=== PATIENT | female | born 1985 | race Caucasian/White ===

== ENCOUNTER 2022-07-08 13:27 | Emergency (ER) | payer OTHER ==
--- OUTSIDE RECORDS SUMMARY | 2022-07-08 13:34 | XMS REPORT | Continuity of Care Document ---
:1985 Author Organization [facility] t Address [address] [place] [address] Care Team Providers Name Role Phone [email or web address] Attending Clinician Unavailable Kristopher Caldwell Attending Clinician Unavailable LITO LIND Attending Clinician Unavailable Nikia Marcos Attending Clinician [phone] Hayley Arzate Attending Clinician Unavailable NATALI HERZOG Attending Clinician Unavailable Isidro Chaudhry Attending Clinician [phone] Yolis Nayak Attending Clinician Unavailable Cinda Weinberg Attending Clinician Unavailable FRANCESCO DUTTON Attending Clinician Unavailable Usha Chaudhry Attending Clinician Unavailable Kristopher Caldwell Admitting Clinician Unavailable Isidro Chaudhry Unavailable [phone] Renan Gates Unavailable Unavailable Payers Payer Name Policy Type Policy Number Effective Date Expiration Date S ource Self Pay P [id number] 2022 00:00:00 Problems Condition Condition Condition Status Onset Resolution Last Treating Co mments Source Name Details Category Date Date Treatment Clinician Date RASH RASH Diagnosis Active 2021-12-02 Mem oria Active 12-02 13:59:00 l 12/02/2021 00:00: Lex haddad 00 [facility] ABDOMINAL ABDOMINAL Diagnosis Active 2021-09-28 Memoria PAIN PAIN 18 09:33:00 l Active 00:00: Dao 09/28/2021 00 [facility] Thrombocyt Condition Active 2021-02-16 Chaudhry, Legacy osis 02-16 21:21:15 [facility] Communi 00:00: ty 00 Health Leukocytos Condition Active 2021-02-16 Chaudhry, Legacy is 02-16 21:21:15 Pathik Communi 00:00: ty 00 Health VOMITING VOMITING Diagnosis Active 2021-01-27 Memoria Active 01-27 12:40:00 l 01/27/2021 00:00: Lex haddad 00 [facility] Clinical Condition Active 2021-02-16 [place] health 01-25 21:20:12 Uche Angel educator 00:00: Annalie ty visit 00 Health Prediabete Condition Active 2021-01-25 Chaudhry, Legacy s 01-25 18:17:00 Pathik Communi 00:00: ty 00 Health Chronic Condition Active 2021-01-25 Chaudhry, [place] kidney 01-25 18:17:00 Pathik Communi disease 00:00: ty stage 2 00 Health Elevated Condition Active 2021-01-25 Chaudhry, L egacy alkaline 01-25 18:17:00 Pathik Commun i phosphatas 00:00: ty e 00 Health Abnormal Condition Active 2021-01-25 Chaudhry, L egacy CBC 01-25 18:17:00 Pathik Communi 00:00: ty 00 Health Dyspepsia Condition Active 2021-01-24 Chaudhry, Legacy 01-24 15:29:31 Path[facility] Communi 00:00: ty 00 Health PMDD Condition Active 2021-01-24 Chaudhry, Leg acy 01-24 15:29:31 Pathik Communi 00:00: ty 00 Health Heavy Condition Active 2021-01-24 Chaudhry, Leg acy menstruati 01-24 15:29:31 Pathik Comm uni on 00:00: ty 00 Health Preventive Condition Active 2021-01-24 Chaudhry, [facility] health 01-24 15:29:31 [facility] Communi care 00:00: ty examinatio 00 Health n Exercise Condition Active 2021-01-24 Isidoro, L egacy Counseling 01-24 15:29:31 Pathik Comm uni 00:00: ty 00 Health Dietary Condition Active 2021-01-24 Chaudhry, [place] counseling 01-24 15:29:31 Pathik Comm uni and 00:00: ty surveillan 00 Health ce BMI Condition Active 2021-01-24 Chaudhry, Leg acy 26.0-26.9 01-24 15:29:31 Pathik Commu ni 00:00: ty 00 Health Overweight Condition Active 2021-01-24 Chaudhry, Legacy 01-24 15:29:31 Pathik Communi 00:00: ty 00 Health EYES PAIN EYES PAIN Diagnosis Active 2019-12-01 Memoria Active 11-30 10:35:00 l 12/01/2019 00:00: Lex haddad 00 [facility] EYE EYE Diagnosis Active 2019-11-09 Mem oria IRRITATION IRRITATION 11-08 13:16:00 l Active 00:00: Dao 11/09/2019 00 [facility] VOMITTING VOMITTING Diagnosis Active 2019-02-19 Memoria Active 02-19 12:45:00 l 02/19/2019 00:00: Lex FORBES 00 [facility] COUGH COUGH Diagnosis Active 2017-09-22 Mem oria Active 2 07:29:00 l 09/22/2017 05:00: Lex haddad 00 [facility] Other and Other and Problem 2017-12-29 Memoria unspecifie unspecifie 13:33:03 tahir Dc overexerti overexerti on or on or strenuous strenuous movements movements or or postures, postures, initial initial encounter encounter 12/29/2017 ANDREI [facility] History of Past Illness Condition Condition Condition Status Onset Resolution Last Treating Co mments Source Name Details Category Date Date Treatment Clinician Date Rash and Rash and Problem 2021-12-04 2021-12-04 Memoria other other 4-24 21:46:57 21:46:57 l nonspecifi nonspecifi 18:08: He damaso sullivan skin c skin 00 eruption eruption 12/02/2021 12/04/2021 [facility] Vomiting, Problem 2021-09-30 2021-09-30 Memoria unspecifie Vomiting, -18 22:28:27 22:28:27 l d unspecifie 15:41: Lex n d 00 09/28/2021 09/30/2021 [facility] Nausea Nausea Problem 2021-09-30 2021-09-30 Memoria with with -18 22:28:27 22:28:27 l vomiting, vomiting, 15:41: Ed merrill unspecifie unspecifie 00 d d 09/28/2021 09/30/2021 [facility] Unspecifie Problem 2021-09-30 2021-09-30 Memoria d Unspecifie 18 22:28:27 22:28:27 l abdominal d 15:41: Dao pain abdominal 00 pain 09/28/2021 09/30/2021 [facility] Hypokalemi Hypokalem Problem 2021-01-29 2021-01-29 Memoria a ia 01-27 22:01:26 22:01:26 l 01/27/2021 17:00: Lex n 01/29/2021 00 [facility] Cannabis Cannabis Problem 2021-01-29 2021-01-29 Memoria abuse, abuse, 01-27 22:01:26 22:01:26 l uncomplica uncomplica 17:00: He damaso zoey zoey 00 01/27/2021 01/29/2021 [facility] Liver Liver Problem 2021-01-29 2021-01-29 emoria disease, disease, 01-27 22:01:26 22:01:26 l unspecifie unspecifie 17:00: He rmann d d 00 01/27/2021 01/29/2021 [facility] Dehydratio Dehydrati Problem 2021-01-29 2021-01-29 Memoria n on 01-27 22:01:26 22:01:26 l 01/27/2021 17:00: Lex n 01/29/2021 [facility] Unspecifie Unspecifi Problem 2019-12-03 2019-12-03 Memoria d acute ed acute 11-30 21:28:22 21:28:22 l conjunctiv conjunctiv 17:00: He rmann itis, itis, 00 unspecifie unspecifie d eye d eye 12/01/2019 12/03/2019 [facility] Ocular Ocular Problem 2019-12-03 2019-12-03 Memoria pain, pain, 11-30 21:28:22 21:28:22 l unspecifie unspecifie 17:00: He rmann d eye d eye 00 12/01/2019 12/03/2019 [facility] Unspecifie Unspecifi Problem 2019-11-11 2019-11-11 Memoria d acute ed acute 11-08 21:47:39 21:47:39 l conjunctiv conjunctiv 17:00: He rmann itis, itis, 00 right eye right eye 11/09/2019 11/11/2019 [facility] Strain of Strain Problem 2017-12-29 2017-12-29 Memoria muscle, of muscle, 09-29 13:33:03 13:33:03 l fascia and fascia and 03:45: He rmann tendon of tendon of 56 lower lower back, back, initial initial encounter encounter 09/29/2017 12/29/2017 [facility] Unspecifie Unspecifi Problem 2017-12-29 2017-12-[address] in ed place 09-22 13:33:03 13:33:03 l other in other 06:00: [place] non-instit non-instit 00 utional utional residence residence as the as the place of place of occurrence occurrence of the of the external external cause cause 09/22/2017 12/29/2017 [facility] Allergies, Adverse Reactions, Alerts This patient has no known allergies or adverse reactions. Social History Social Habit Start Date Stop Date Quantity Comments Source if the patient is 2021-11-07 2021-11-07 No Legacy using/has used a 12:58:34 12:58:34 Communit y vaping item, Current, Hea lth Former, Never Used, Not asked PHQ2 Questionairre 2021-11-07 2021-11-07 Legacy Score 12:58:34 12:58:34 [facility] is there any chance 2021-11-07 2021-11-07 No Legac y that you could be 12:58:34 12:58:34 Communi ty ? Health passive cigarette 2021-11-07 2021-11-07 No Legacy smoke exposure 12:58:34 12:58:34 [facility] condom use 2021-11-07 2021-11-07 Never Legacy 12:58:34 12:58:34 [facility] number of sexual 2021-11-07 2021-11-07 Legacy partners in last year 12:58:34 12:58:34 [facility] sexual orientation 2021-11-07 2021-11-07 Heterosexual L[place] cy 12:58:34 12:58:34 [facility] social history 2021-11-07 2021-11-07 reviewed today Legacy reviewed E&M 12:58:34 12:58:34 [facility] Ever had sexual 2021-11-07 2021-11-07 Yes Legacy intercourse? 12:58:34 12:58:34 [facility] alcohol use 2021-11-07 2021-11-07 social Legacy 12:58:34 12:58:34 [facility] drug use 2021-11-07 2021-11-07 Never Legacy 12:58:34 12:58:34 [facility] time of call 2021-03-19 2021-03-19 03/19/2021 10:52 Legacy 10:52:34 10:52:34 AM [facility] albumin, serum 2021-02-14 2021-02-14 4.5 g/dL Legacy 10:23:00 10:23:00 [facility] sex at 2021-02-14 2021-02-14 Female Legacy 09:49:38 09:49:38 [facility] patient considered to 2021-02-14 2021-02-14 No Leg acy be homeless 09:49:38 09:49:38 [facility] Social History 2021-01-27 2021-01-27 Memorial 16:44:40 16:44:40 Dao Transportation 2021-01-24 2021-01-24 No Legacy Insecurity (In the 15:30:37 15:30:37 Commun ity past year, have you Healt h or someone you in your household had to go without) Rent/Mortgage Payment 2021-01-24 2021-01-24 No Leg acy Insecurity (In the 15:30:37 15:30:37 Commun ity past year, have you Healt h or someone you in your household had to go without) total number of 2021-01-24 2021-01-24 Legacy lifetime sexual 14:29:00 14:29:00 [facility] Smoking Status Start Date Stop Date Source Never smoked tobacco (finding) L egacy [facility] Medications Ordered Filled Start Stop Current Ordering Indication Dosage Frequency Signature Comments Components Source Medication Medication Date Date Medication? Clinician (SIG) Name Name aries Yes 1 appl, Mem oria one topical 4-24 TOP, BID, l 1% cream 18:10: PRN Dao 00 Itching, apply a thin layer to the affected area, X 7 day, # 30 gm, 0 Refill(s) hydrOXYzine Yes 25 mg = 1 M emoria hydrochlori 4-24 tab, PO, l de 25 mg 18:09: QID, PRN Anushka nn oral tablet 00 Itching, X 5 day, # 20 tab, 0 Refill(s) Cipro 500 Yes 500 mg = 1 Me moria mg oral 4-24 tab, PO, l tablet 18:09: Q12H, X 7 Lex n 00 day, # 14 tab, 0 Refill(s) Ondansetron Yes 4 mg = 1 Me moria 4 MG Oral 2-18 tab, PO, l Tablet 15:42: BID, X 5 [place] [Zofran] 00 day, # 10 tab, 0 Refill(s) Droperidol No Notes: Memor ia 2-18 (Same as: l 14:55: Inapsine) Dao 00 Calcium No 1,000 mL, Memor ia Chloride 2-18 1000 l 0.0014 14:55: ml/hr, [place] MEQ/ML / 00 Infuse Potassium Over: 1 Chloride hr, Route: 0.004 IV, 1,000, MEQ/ML / Drug form: Sodium INJ, ONCE, Chloride Priority: 0.103 STAT, MEQ/ML / Dosing Sodium Weight Lactate 71.4 kg, 0.028 Start MEQ/ML date: Injectable 09/28/21 Solution 8:55:00 LINING MAKER, Stop date: 09/28/21 8:55:00 LINING MAKER, 0 (OMEPRAZOLE Yes Pathik Take 1 [place] ) 20 MG 8-11 Chaudhry tablet by Commun i TBEC 00:00: mouth once ty 00 a day at Health least 1 hour prior to meals CARAFATE Yes Pathik 1 tablet Leg acy (SUCRALFATE 8-11 Chaudhry by mouth Com gayathri ) 1 GM TABS 00:00: three ty 00 times a Health day AC omeprazole Yes 40 mg = 1 Me moria 40 mg oral 6-19 cap, PO, l delayed 18:55: Daily, # Lex n release 00 30 cap, 0 capsule Refill(s) Ondansetron Yes 4 mg = 1 Me moria 4 MG Oral 6-19 tab, PO, l Tablet 18:54: Q6H, PRN [place] [Zofran] 00 Nausea/Vom iting, X 8 day, # 30 tab, 0 Refill(s) Promethazin Yes 12.5 mg = M emoria e 6-19 1 supp, l Hydrochlori 18:54: MT, Q4H, He rmann de 12.5 MG 00 PRN Nausea Rectal & Suppository Vomiting, [Phenergan] # 12 ea, 0 Refill(s) Ativan No Notes: Memoria 6-19 (Same as: l 17:32: Ativan) Omnipaque No Notes: Memori a 350 - (Same l injectable 16:45: as:Omnipaq H ermann solution 00 ue 350) WASTE: F/P - Black; E - Municipal Trash Bin Droperidol No Notes: Memor ia 6-19 (Same as: l 15:16: Inapsine) Reglan No Notes: Memoria 6-19 (Same as: l 14:55: Reglan) Protonix No Notes: For Mem oria 6-19 IV push l 14:55: reconstitu [place] 00 te with 10 ml 0.9% sodium chloride and push over 2 minutes. (Same as: Protonix) Calcium No 2,000 mL, Memor ia Chloride 01-27 2,000 l 0.0014 14:54: ml/hr, Dao MEQ/ML / 00 Infuse Potassium Over: 1 Chloride hr, Route: 0.004 IV, 2,000, MEQ/ML / Drug form: Sodium INJ, ONCE, Chloride Priority: 0.103 STAT, MEQ/ML / Dosing Sodium Weight Lactate 64.008 kg, 0.028 Start MEQ/ML date: Injectable 01/27/21 Solution 9:54:00 CDT, Stop date: 01/27/21 9:54:00 CDT, 0 Haldol No 5 mg, Memoria 01-27 Route: IV, l 14:54: ONCE, Dao 00 Dosing Weight 64.008, kg, Priority: STAT, Start date: 01/27/21 9:54:00 CDT, Stop date: 01/27/21 9:54:00 CDT (CITALOPRAM Yes Pathik 1 1xD 1 tablet [facility] HYDROBROMID 01-24 Chaudhry by mouth Com gayathri E) 10 MG 00:00: once a day ty TABS 00 Health Ondansetron 2019-08 Yes 4 mg = 1 Me moria 4 MG Oral -07 tab, PO, l Tablet 16:32: BID, PRN [place] [Zofran] 00 Nausea, # 10 tab, 0 Refill(s) potassium 2019-08 Yes 20 mEq = 1 Me moria chloride 20 - tab, PO, l mEq oral 16:32: Daily, # Anushka nn tablet, 00 10 tab, 0 extended Refill(s) release (KCL) Zofran ODT 2019-08 No Notes: Memor ia - (Same as: l 16:31: Zofran [place] 00 ODT) potassium 2019-08 No Notes: Memori a chloride 20 - (Same as: l mEq oral 15:34: K-Dur 20) Herm desirae tablet, 00 "Do Not extended Crush" release Give with (KCL) food and full glass of water For patients unable to swallow tablet, dissolve in one half glass of water. Allow about 2 minutes for the tablets to disintegra te. Stir before giving to prepare slurry and administer . Please exclude Patient s with feeding tube less than 14 Swedish (Dobhoff, J-tube etc) and pediatric and patients. Potassium 2019-08 No Notes: Memori a Chloride -07 Infuse at l 15:34: a rate of Dao 00 10 mEq/hr. (Same as: KCL) Saline 2019-08 No Notes: Memoria Flush 0.9% -07 Same as: l 14:48: BD Dao 00 Posiflush Sterile Sodium 2019-08 No 1,000 mL, Memori a Chloride - Infuse l 0.9% 14:48: Over: 1 Dao (Bolus) IV 00 hr, Route: IV, ONCE, Priority: STAT, Dosing Weight 64.008 kg, Start date: 06/17/20 8:48:00 LINING MAKER, Stop date: 06/17/20 8:48:00 LINING MAKER Droperidol 2019-08 No 1.25 mg, Mem oria 08-17 Route: l 14:48: IVP, ONCE, [place] 00 Dosing Weight 64.008, kg, Priority: STAT, Start date: 06/17/20 8:48:00 LINING MAKER, Stop date: 06/17/20 8:48:00 LINING MAKER Acetaminoph 2019- Yes 1,000 mg = Memoria en 500 MG -22 2 tab, PO, l Oral Tablet 15:56: Q6H, PRN He rmann 00 Pain, X 10 day, # 120 tab, 0 Refill(s) Ibuprofen 2019- Yes 400 mg = 1 Me moria 400 MG Oral 4-22 tab, PO, l Tablet 15:56: Q6H, PRN Dao 00 Pain, take with food, X 10 day, # 60 tab, 0 Refill(s) fluorescein 2019-0 No Notes: [place] umer ophthalmic -22 Same as: l 1 mg test 15:56: FUL-BARBARA Anushka nn 00 Tetracaine 2019- No Notes: Memor ia hydrochlori -22 Non-Formul l de 5 MG/ML 15:56: kenroy Drug Her rodríguez Ophthalmic 00 For Solution Ophthalmic Use. (Same As: Pontocaine HCl) Levofloxaci 2019- Yes 2 drp, [place] umer n 5 MG/ML 4-22 BOTH EYES, l Ophthalmic 15:55: Q2H, 2 Anushka nn Solution 00 drops every two hours for the first two days, then 2 dropsevery six hours for the next 5 days, X 10 day, # 10 mL, 0 Refill(s) Tobramycin Yes 1 drp, Memor ia 3 MG/ML 3-31 BOTH EYES, l Ophthalmic 18:27: QID, X 10 He rmann Solution 00 day, # 5 ml, 0 Refill(s) Loperamide Yes 2 mg = 1 Mem oria Hydrochlori 7-12 tab, PO, l de 2 MG 21:56: Q6H, PRN Lex n Oral Tablet 00 Diarrhea, [Imodium] # 6 tab, 0 Refill(s) Promethazin Yes 25 mg = 1 M emoria e 7-12 supp, MT, l Hydrochlori 21:55: Q6H, PRN He rmann de 25 MG 00 Nausea & Rectal Vomiting, Suppository # 6 supp, [Phenergan] 0 Refill(s) Reglan No Notes: Memoria - (Same as: l 19:38: Reglan) [place] 00 Omnipaque No Notes: Memori a 300 02-19 (Same l injectable 18:41: as:Omnipaq H ermann solution 00 ue 300). WASTE: F/P - Black; E - Rezzie Trash Bin [employer] No Notes: Memoria -12 (Same as: l 16:36: Zofran) [place] MEDICATION WASTE Product Size: 4 mg Product Wasted: ___ mg NS (Bolus) No 1,000 mL, Me moria IV 02-19 1,000 l 16:36: ml/hr, Dao Infuse Over: 1 hr, Route: IV, 1,000, Drug form: INJ, ONCE, Priority: STAT, Dosing Weight 75 kg, Start date: 02/19/19 11:36:00 CDT, Stop date: 02/19/19 11:36:00 CDT, 0 Lidocaine Yes 1 patch, [place] umer Hydrochlori 2-12 TOP, l de 0.05 13:24: Daily, PRN Herm desirae MG/MG 00 Pain Score Transdermal 1-3, Patch remove [Lidoderm] patches after 12 hours, # 30 patch, 0 Refill(s) Methocarbam 2018-0 No 500 mg = 1 Memoria ol 500 MG 2-12 tab, PO, l Oral Tablet 13:24: Q6H, PRN Jeffry rmann [Robaxin] 00 Spasms, X 7 day, # 12 tab, 0 Refill(s) Vital Signs Vital Name Observation Time Observation Value Comments Source Temperature Oral (F) 2021-12-02 18:40:00 98.1 F Memorial Dao Heart Rate 2021-12-02 18:40:00 [facility] [place] Respitory Rate 2021-12-02 18:40:00 Memori al Dao Systolic (mm Hg) 2021-12-02 18:40:00 Brenton rial [place] Diastolic (mm Hg) 2021-12-02 18:40:00 Mem orial Dao Weight 2021-12-02 17:09:00 Memorial Dao Systolic (mm Hg) 2021-12-02 17:09:00 Brenton rial [place] Diastolic (mm Hg) 2021-12-02 17:09:00 Mem orial Dao Heart Rate 2021-12-02 17:09:00 [facility] [place] Respitory Rate 2021-12-02 17:09:00 Memori al [place] Temperature Oral (F) 2021-12-02 17:09:00 98.0 F [facility] [place] oxygen saturation, 2021-11-07 12:58:34 98 /min [facility] oximetry Health pulse rate 2021-11-07 12:58:34 90 /min [facility] C ommunity Health blood pressure, 2021-11-07 12:58:34 88 mm[Hg] Legac [facility] diastolic Health blood pressure, 2021-11-07 12:58:34 143 mm[Hg] Legac y [facility] systolic Health temperature E&M 2021-11-07 12:58:34 98.4 [degF] Legac y [facility] Health temperature site 2021-11-07 12:58:34 oral [facility] weight E&M 2021-11-07 12:58:34 162.20 [lb_av] [facility] Health weight in kilograms 2021-11-07 12:58:34 73.73 kg L [facility] E& Health height in 2021-11-07 12:58:34 165.10 cm [facility] C ommunity centimeters E&M Health Temperature Oral (F) 2021-09-28 15:57:00 98.7 F [facility] Dao Heart Rate 2021-09-28 15:57:00 [facility] [place] Respitory Rate 2021-09-28 15:57:00 Memori al Dao Systolic (mm Hg) 2021-09-28 15:57:00 Brenton rial Dao Diastolic (mm Hg) 2021-09-28 15:57:00 Mem orial [place] Weight 2021-09-28 14:39:00 [facility] [place] Systolic (mm Hg) 2021-09-28 14:39:00 Brenton rial [place] Diastolic (mm Hg) 2021-09-28 14:39:00 Mem orial Dao Heart Rate 2021-09-28 14:39:00 [facility] [place] Respitory Rate 2021-09-28 14:39:00 Memori al [place] Temperature Oral (F) 2021-09-28 14:39:00 98.2 F [facility] Dao oxygen saturation, 2021-02-14 09:49:38 98 /min [facility] oximetry Health blood pressure, 2021-02-14 09:49:38 73 mm[Hg] Leg y [facility] diastolic Health blood pressure, 2021-02-14 09:49:38 121 mm[Hg] Legac y [facility] systolic Health respiratory rate E&M 2021-02-14 09:49:38 16 /[facility] pulse rate 2021-02-14 09:49:38 95 /min [facility] C formerly [facility] Health temperature site 2021-02-14 09:49:38 oral Lega [facility] Health temperature E&M 2021-02-14 09:49:38 98.1 [degF] Legac y [facility] Health weight E&M 2021-02-14 09:49:38 164 [lb_av] [facility] weight in kilograms 2021-02-14 09:49:38 74.55 kg L [facility] E& Health height in 2021-02-14 09:49:38 165.10 cm [facility] C ommunity centimeters E&M Health Temperature Oral (F) 2021-01-27 19:33:00 98.1 F [facility] Heart Rate 2021-01-27 19:33:00 Memorial [facility]ao Respitory Rate 2021-01-27 19:33:00 Memori al [place] Systolic (mm Hg) 2021-01-27 19:33:00 Brenton rial [place] Diastolic (mm Hg) 2021-01-27 19:33:00 Mem orial [place] Heart Rate 2021-01-27 17:33:00 [facility] [place] Respitory Rate 2021-01-27 17:33:00 Memori al [place] Systolic (mm Hg) 2021-01-27 17:33:00 Brenton rial Dao Diastolic (mm Hg) 2021-01-27 17:33:00 Mem orial Dao Weight 2021-01-27 14:14:00 Memorial [place]ao Systolic (mm Hg) 2021-01-27 14:14:00 Brenton rial Dao Diastolic (mm Hg) 2021-01-27 14:14:00 Mem orial [place] Heart Rate 2021-01-27 14:14:00 [facility] [place] Respitory Rate 2021-01-27 14:14:00 Memori al [place] Temperature Oral (F) 2021-01-27 14:14:00 97.7 F Memorial Dao oxygen saturation, 2021-01-24 14:29:00 98 /min [facility] oximetry Health blood pressure, 2021-01-24 14:29:00 87 mm[Hg] Legac y [facility] diastolic Health blood pressure, 2021-01-24 14:29:00 134 mm[Hg] Legac y [facility] systolic Health respiratory rate E&M 2021-01-24 14:29:00 16 /min [facility] pulse rate 2021-01-24 14:29:00 95 /min [facility] temperature site 2021-01-24 14:29:00 tympanic [facility] temperature E&M 2021-01-24 14:29:00 97.7 [degF] [facility] height in 2021-01-24 14:29:00 165.10 cm [facility] C ommunity centimeters E&M Health weight E&M 2021-01-24 14:29:00 161.25 [lb_av] [facility] weight in kilograms 2021-01-24 14:29:00 73.30 kg L [facility] E&M Health Temperature Oral (F) 2020-06-17 16:46:00 98.2 F [facility] Dao Heart Rate 2020-06-17 16:01:00 [facility] [place] Respitory Rate 2020-06-17 16:01:00 Memori al Dao Systolic (mm Hg) 2020-06-17 16:01:00 Brenton rial Dao Diastolic (mm Hg) 2020-06-17 16:01:00 Mem orial Dao Weight 2020-06-17 14:34:00 [facility] [place] Systolic (mm Hg) 2020-06-17 14:34:00 Brenton rial [place] Diastolic (mm Hg) 2020-06-17 14:34:00 Mem orial Dao Heart Rate 2020-06-17 14:34:00 [facility] [place] Respitory Rate 2020-06-17 14:34:00 Memori al Dao Temperature Oral (F) 2020-06-17 14:34:00 98.3 F [facility] [place] Heart Rate 2019-12-01 16:31:00 Memorial [place] Respitory Rate 2019-12-01 16:31:00 Memori al [place]ao Systolic (mm Hg) 2019-12-01 16:31:00 Brenton rial [place] Diastolic (mm Hg) 2019-12-01 16:31:00 Mem orial Dao Height 2019-12-01 15:39:00 165.1 cm Memorial Dao BMI Calculated 2019-12-01 15:39:00 Memori al [place] Weight 2019-12-01 15:39:00 [facility] [place] Systolic (mm Hg) 2019-12-01 15:39:00 Brenton rial Dao Diastolic (mm Hg) 2019-12-01 15:39:00 Mem orial Dao Heart Rate 2019-12-01 15:39:00 [facility] [place] Respitory Rate 2019-12-01 15:39:00 Memori al Dao Temperature Oral (F) 2019-12-01 15:39:00 98.0 F [facility] [place] Weight 2019-11-09 17:30:00 [facility] [place] Systolic (mm Hg) 2019-11-09 17:30:00 Brenton rial Dao Diastolic (mm Hg) 2019-11-09 17:30:00 Mem orial [place] Heart Rate 2019-11-09 17:30:00 [facility] [place] Respitory Rate 2019-11-09 17:30:00 Memori al [place] Temperature Oral (F) 2019-11-09 17:30:00 98.6 F [facility] Respitory Rate 2019-02-19 22:51:00 Memori al [place]ao Systolic (mm Hg) 2019-02-19 22:51:00 Brenton rial Dao Diastolic (mm Hg) 2019-02-19 22:51:00 Mem orial [place] Heart Rate 2019-02-19 22:51:00 [facility]ao Temperature Oral (F) 2019-02-19 22:51:00 97.9 F [facility] [place] Respitory Rate 2019-02-19 21:20:00 Memori al [place] Systolic (mm Hg) 2019-02-19 21:20:00 Brenton rial [place] Diastolic (mm Hg) 2019-02-19 21:20:00 Mem orial [place] Heart Rate 2019-02-19 21:20:00 [facility] [place] Systolic (mm Hg) 2019-02-19 17:24:00 Brenton rial Dao Diastolic (mm Hg) 2019-02-19 17:24:00 Mem orial [place] Respitory Rate 2019-02-19 17:24:00 Memori al [place] Heart Rate 2019-02-19 17:24:00 [facility] [place] Weight 2019-02-19 15:09:00 [facility] [place] BMI Calculated 2019-02-19 15:09:00 Memori al Dao Height 2019-02-19 15:09:00 165.1 cm [facility] [place] Temperature Oral (F) 2019-02-19 15:09:00 98.3 F [facility] [place] Weight 2017-09-22 12:38:00 Memorial Dao Temperature Oral (F) 2017-09-22 12:38:00 98 F [facility] [place] Respitory Rate 2017-09-22 12:38:00 Memori al Dao Heart Rate 2017-09-22 12:38:00 [facility] [place] Systolic (mm Hg) 2017-09-22 12:38:00 Brenton rial Dao Diastolic (mm Hg) 2017-09-22 12:38:00 Mem orial Dao Procedures Procedure Date / Time Performed Performing Clinician Sourc e Urine - In 2021-11-07 13:05:07 [facility] Most recent diastolic 2021-02-14 10:11:27 [facility] blood pressure less Health than 80 mm Hg (HTN, CKD, CAD) (DM) Most recent systolic 2021-02-14 10:11:27 [facility] blood pressure less Health than 130 mm Hg (DM), (HTN, CKD, CAD) [id number] Most recent 2021-02-14 10:10:23 [facility] hemoglobin A1c (HbA1c) Health level less than 7.0% (DM) Most recent diastolic 2021-01-24 15:25:02 [facility] blood pressure 80-89 Health mm Hg (HTN, CKD, CAD) (DM) Most recent systolic 2021-01-24 15:25:02 [facility] blood pressure 130 - Health 139 mm Hg (DM),(HTN, CKD, CAD) Encounters Start End Encounter Admission Attending Care Care Encounter Source Date/Time Date/Time Type Type Clinicians Facility Department ID 2022-07-08 Outpatient [email or web address] [facility] [id number] [facility] 11:47:07 [id number] [facility] 2022-05-23 2022-05-23 Outpatient LAURA [place] hay USN [id number] [facility] 09:16:00 09:16:00 Kristopher Devi [facility] 2021-12-02 2021-12-02 Emergency [facility] [id number] Memoria 17:03:53 19:05:00 ajay Dc 07 l [facility] 2021-12-02 2021-12-02 Emergency E [place] LIND [facility] [id number] [place] 12:03:00 14:05:00 LITO 2021-11-07 2021-11-07 Office Nikia Marcos [facility] En counter/ Legacy 00:00:00 00:00:00 Visit Hayley Arzate [id number] C ommuni [id number] [facility] 2021-09-28 2021-09-28 [facility] [id number] Memoria 14:35:00 16:02:00 r Dao 06 l [facility] 2021-09-28 2021-09-28 Emergency E MARZENA [facility] [address] [facility] 08:35:00 10:02:00 NATALI 2021-02-14 2021-02-14 [facility] Legacy 00:00:00 00:00:00 Visit Yolis Nayak [id number] [facility] Len[facility] Cinda Tahir [id number] [facility] 2021-01-27 2021-01-27 [facility] [id number] Memoria 14:13:15 20:13:00 ajay Dc 05 l [facility] 2021-01-27 2021-01-27 Emergency E DUTTONFRANCESCO [facility] [address] [facility] 09:13:00 15:13:00 2021-01-24 2021-01-24 Office Isidro Chaudhry [facility] Enco unter/ Legacy 00:00:00 00:00:00 Visit ChaudhryUsha dixon [id number] [facility] [id number] [facility] 2020-06-17 2020-06-17 [facility] [id number] Mem[facility] 14:33:40 16:49:00 ajay Dc 04 [facility] 2019-12-01 2019-12-01 [facility] [id number] Mem[facility] 15:32:13 16:32:00 ajay Dc 03 l [facility] 2019-11-09 2019-11-09 [facility] [id number] Memoria 17:14:44 19:10:00 ajay Dc 02 [facility] 2019-02-19 2019-02-19 [facility] [id number] Memoria 15:06:35 22:53:00 ajay Dc 01 l [facility] 2017-09-22 2017-09-22 [facility] [id number] Memoria 12:24:00 13:39:00 ajay Dc 00 l [facility] Results Test Description Test Time Test Comments Results Result [facility] e Comments - US PELVIS 2022-05-23 COMPLETE 11:55:00 [facility])Name: SULAIMAN ARRIAZA : 1985 Sex: F Name: SULAIMAN ARRIAZA [facility] : 1985 Age/S: 36 / F [address] [facility] Unit #: [id number] Loc: GHASSAN Vasquez [address] Phys: Kristopher Caldwell Acct: [id number] Dis Date: Status: REG CLI PHONE #: [phone] Exam Date: 05/23/2022 1000 FAX #: [phone] Reason: EXAMS: CPT CODE: [id number] US PELVIS COMPLETE 47530 REASON FOR EXAM: Pelvic pain with heavy menstrual cycle EXAM ORDER DATE: 05/23/2022 9:14 AM Attending Julio César: Kristopher Caldwell PROCEDURE: - US PELVIS COMPLETE Technique: Grayscale images, color doppler, and spectral doppler images of the uterus and ovaries were obtained utilizing a transabdominal approach. Comparison study: None FINDINGS: Uterus: size: 9.5 x 4.9 x 5.6 cm echogenicity/masses: Normal myometrial echogenicity without solid appearing masses endometrium: 12.1 mm Right ovary: size: 2.4 x 1.5 x 2.4 cm cysts/masses: None Doppler findings: Normal flow is seen on color and spectral Doppler images. adnexal masses: None Left ovary: size: 3.0 x 2.1 x 2.7 cm cysts/masses: None Doppler findings: Normal flow is seen on color and spectral Doppler images. adnexal masses: None Free fluid: No fluid seen in the cul-de-sac. IMPRESSION: Sonographically unremarkable pelvis Location: [facility] PAGE 1 Signed Report (CONTINUED) Name: SULAIMAN ARRIAZA [facility] : 1985 Age/S: 36 / F [address] Unit #: [id number] Loc: [place] [address] Phys: Kristopher Caldwell Acct: [id number] Dis Date: Status: REG CLI PHONE #: [phone] Exam Date: 05/23/2022 1000 FAX #: [phone] Reason: EXAMS: CPT CODE: [id number] US PELVIS COMPLETE 19879 (Continued) at 1155 Reported and signed by: Jair Tapia MD CC: Kristopher Caldwell Technologist: ANDREA JENNINGS RT(R),MK Trnscb Date/Time: 05/23/2022 (1155) [email or web address] Orig Print D/T: S: 05/23/2022 (1158) Probe: PAGE 2 Signed Report - US ABDOMEN 2022-05-23 COMPLETE 10:55:00 [facility]Name: SULAIMAN ARRIAZA : 1985 Sex: F Name: SULAIMAN ARRIAZA [facility] : 1985 Age/S: 36 / F [address] Unit #: [id number] Loc: [place] [address] Phys: Kristopher Caldwell Acct: [id number] Dis Date: Status: REG CLI PHONE #: [phone] Exam Date: 05/23/202252 FAX #: [phone] Reason: R10.84 EXAMS: CPT CODE: [id number] US ABDOMEN COMPLETE 50761 REASON FOR EXAM: R10.84 EXAM ORDER DATE: 05/23/2022 9:14 AM Attending Julio César: Kristopher Caldwell PROCEDURE: - US ABDOMEN COMPLETE Technique: Grayscale and color Doppler images of the abdomen. Comparison study: None FINDINGS: Aorta and IVC: Patent and grossly normal in caliber. Liver: Size: 17.5 cm craniocaudally Parenchyma and contour: Increased parenchyma echogenicity Cysts and/or masses: None. Intrahepatic bile ducts: No intrahepatic biliary ductal dilation Common bile duct: 2.8 mm in diameter. No echogenic filling defects in visualized duct. Gallbladder: Stones/sludge: No intraluminal stones or sludge. Wall: 1.6 mm in thickness. No discontinuity. No polyps. No pericholecystic fluid. No hyperemia. Sonographic Taylor's sign: Negative Portal vein: Portal vein caliber is within normal limits. Portal vein is patent with hepatopetal flow. Pancreas: Incompletely visualized. However the visualized portions are grossly within normal limits. Right kidney: parenchyma echogenicity: Normal echogenicity size: 11.4 x 4.1 x 5.4 cm stones: none cysts/masses: none hydronephrosis: none PAGE 1 Signed Report (CONTINUED) Name: SULAIMAN ARRIAZA [facility] : 1985 Age/S: 36 / F [address] [facility] Unit #: [id number] Loc: GHASSAN Vasquez [address] Phys: Kristopher Caldwell Acct: [id number] Dis Date: Status: REG CLI PHONE #: [phone] Exam Date: 05/23/2022951 FAX #: [phone] Reason: R10.84 EXAMS: CPT CODE: [id number] US ABDOMEN COMPLETE 46155 (Continued) Left kidney: parenchyma echogenicity: Normal echogenicity size: 11.9 x 4.3 x 5.1 cm stones: none cysts/masses: none hydronephrosis: none Spleen: size: 10.2 x 4.1 x 3.7 cm cysts/masses: Parenchyma is sonographically unremarkable. Ascites/pleural effusions: None IMPRESSION: Fatty liver. Location: [facility] at 1055 Reported and signed by: Jair Tapia MD CC: Kristopher Caldwell Technologist: ANDREA JENNINGS RT(R),RDMS Trnscb Date/Time: 05/23/2022 (295) [email or web address] Orig Print D/T: S: 05/23/2022 (8900) Probe: PAGE 2 Signed Report URINE CHEM 2021-12-02 17:39:00 Test Item Value Reference Range Interpretation Comme nts U Preg (test code = U Preg) Negative (12/02/21 12:39 PM) [facility] Daobeta HCG, urine, sukiazlgcysogidi3628-19-16 12:58:34 Test Item Value Reference Range Interpretation Comments beta HCG, urine, semiquantitative negative (test code = 2106-3) [facility] Healthglucose, urine, wgqnzwebiyvbjlry3771-41-22 12:58:34 Test Item Value Reference Range Interpretation Comments glucose, urine, semiquantitative negative (test code = 5792-7) [facility] Healthbilirubin, eript5207-57-76 12:58:34 Test Item Value Reference Range Interpretation Comments bilirubin, urine (test code = negative 5770-3) [facility] Healthketones, urine, by test kgmfh5601-35-03 12:58:34 Test Item Value Reference Range Interpretation Comments ketones, urine, by test strip (test negative code = 5797-6) [facility] Healthblood in urine (hemoglobin) by ehxflozy9964-27-73 12:58:34 Test Item Value Reference Range Interpretation Comments blood in urine (hemoglobin) by negative dipstick (test code = 4998) [facility] Healthprotein, urine, semiquantitative (dipstick)2021-11-07 12:58:34 Test Item Value Reference Range Interpretation Comments protein, urine, semiquantitative negative (dipstick) (test code = 1753-3) [facility] urine, semiquantitative (dipstick) 2021-11-07 12:58:34 Test Item Value Reference Range Interpretation Comments urobilinogen, urine, negative semiquantitative (dipstick) (test code = 5818-0) [facility], urine, irxlmwzlaossdcsx1836-11-98 12:58:34 Test Item Value Reference Range Interpretation Comments nitrite, urine, semiquantitative negative (test code = 5802-4) [facility]ukocyte esterase, urine, by hpqpazeu0021-22-15 12:58:34 Test Item Value Reference Range Interpretation Comments leukocyte esterase, urine, by negative dipstick (test code = 5799-2) [facility]arance, oymwh7580-95-54 12:58:34 Test Item Value Reference Range Interpretation Comments appearance, urine (test code = 5767-9) clear [facility] yudbr8174-61-39 12:58:34 Test Item Value Reference Range Interpretation Comments urine color (test code = 5778-6) yellow [facility]parkAwgbpwPJYHCCKURX1280-43-85 15:02:00 Test Item Value Reference Range Interpretation Comments RDW (test code = RDW) 12.9 11.5-14.5 [facility] HospitalPckbgnwLGXLIHCZRB2814-46-09 15:02:00 Test Item Value Reference Range Interpretation Comments Platelet (test code = Platelet) 408 133-450 [facility] RockBrfwvvyEABUTNPEXE9702-79-16 15:02:00 Test Item Value Reference Range Interpretation Comments MPV (test code = MPV) 8.1 7.4-10.4 [facility] RockTfojjcaCCOTETIDFD7502-79-18 15:02:00 Test Item Value Reference Range Interpretation Comments Segs (test code = Segs) 79.6 45.0-75.0 [facility] HospitalTaiercqVRQKXIQIYU1137-25-92 15:02:00 Test Item Value Reference Range Interpretation Comments Lymphocytes (test code = Lymphocytes) 12.1 20.0-40.0 [facility] HospitalSpxnvinYXMXQYOQIL8207-50-04 15:02:00 Test Item Value Reference Range Interpretation Comments Monocytes (test code = Monocytes) 7.1 2.0-12.0 [facility] HospitalClhlkafSWAOMYDAFQ9407-72-95 15:02:00 Test Item Value Reference Range Interpretation Comments Eosinophils (test code = 0.7 See_Comment [A utomated message] The Eosinophils) system which ge nerated this result tra nsmitted reference range : <=4.0. The reference r olinda was not used to int erpret this result as normal/abnormal . [place] 393392-02-18 15:02:00 Test Item Value Reference Range Interpretation Comments Basophils (test code = 0.5 See_Comment [Aut omated message] The Basophils) system which ge nerated this result tra nsmitted reference range : <=1.0. The reference r olinda was not used to int erpret this result as normal/abnormal . [place] 393392-02-18 15:02:00 Test Item Value Reference Range Interpretation Comments Neutrophils # (test code = Neutrophils 12.5 1.5-8.1 #) [facility] RockUgtrjvdQXLCCTOGYA8423-05-09 15:02:00 Test Item Value Reference Range Interpretation Comments Lymphocytes # (test code = Lymphocytes 1.9 1.0-5.5 #) [place] 393392-02-18 15:02:00 Test Item Value Reference Range Interpretation Comments Monocytes # (test code 1.1 See_Comment [Aut omated message] The = Monocytes #) system which generated this result tra nsmitted reference range : <=0.8. The reference r olinda was not used to int erpret this result as normal/abnormal . [place] 393392-02-18 15:02:00 Test Item Value Reference Range Interpretation Comments Eosinophils # (test code 0.1 See_Comment [A utomated message] The = Eosinophils #) system whic h generated this result tra nsmitted reference range : <=0.5. The reference r olinda was not used to int erpret this result as normal/abnormal . [place] 393392-02-18 15:02:00 Test Item Value Reference Range Interpretation Comments Basophils # (test code 0.1 See_Comment [Aut omated message] The = Basophils #) system which generated this result tra nsmitted reference range : <=0.2. The reference r olinda was not used to int erpret this result as normal/abnormal . [facility] EGIYY1128-46-15 15:02:00 Test Item Value Reference Range Interpretation Comments Glucose Lvl (test code = Glucose Lvl) 130 70-99 [facility] QSFWN1544-22-69 15:02:00 Test Item Value Reference Range Interpretation Comments BUN (test code = BUN) 13 7-22 [place] 830182-02-18 15:02:00 Test Item Value Reference Range Interpretation Comments Creatinine Lvl (test code = Creatinine 0.80 0.50-1.40 Lvl) [place] 830182-02-18 15:02:00 Test Item Value Reference Range Interpretation Comments Sodium Lvl (test code = Sodium Lvl) 140 135-145 [place] 830182-02-18 15:02:00 Test Item Value Reference Range Interpretation Comments Potassium Lvl (test code = Potassium 3.5 3.5-5.1 Lvl) [place] 830182-02-18 15:02:00 Test Item Value Reference Range Interpretation Comments Chloride Lvl (test code = Chloride Lvl) 105 95-109 [place] 830182-02-18 15:02:00 Test Item Value Reference Range Interpretation Comments CO2 (test code = CO2) 26 24-32 [place] 830182-02-18 15:02:00 Test Item Value Reference Range Interpretation Comments Calcium Lvl (test code = Calcium Lvl) 9.6 8.5-10.5 [place] 830182-02-18 15:02:00 Test Item Value Reference Range Interpretation Comments AGAP (test code = AGAP) 12.5 10.0-20.0 [place] 830182-02-18 15:02:00 Test Item Value Reference Range Interpretation Comments eGFR (test code = eGFR) 95 [place] 830182-02-18 15:02:00 Test Item Value Reference Range Interpretation Comments Total Protein (test code = Total 8.4 6.4-8.4 Protein) [place] 830182-02-18 15:02:00 Test Item Value Reference Range Interpretation Comments Albumin Lvl (test code = Albumin Lvl) 4.2 3.5-5.0 [place] 830182-02-18 15:02:00 Test Item Value Reference Range Interpretation Comments ALT (test code = ALT) 35 See_Comment [Auto mated message] The system which ge nerated this result transmit zoey reference range : <=65. The reference range was not used to interpr et this result as mary l/abnormal. [place] 830182-02-18 15:02:00 Test Item Value Reference Range Interpretation Comments AST (test code = AST) 33 See_Comment [Auto mated message] The system which ge nerated this result transmit zoey reference range : <=37. The reference range was not used to interpr et this result as mary l/abnormal. [facility] JYZEL1272-24-40 15:02:00 Test Item Value Reference Range Interpretation Comments Alk Phos (test code = Alk Phos) 45 39-136 [facility] WDHKU2429-87-92 15:02:00 Test Item Value Reference Range Interpretation Comments Bili Total (test code = Bili Total) 1.5 0.2-1.3 [facility] SMUNL8059-16-27 15:02:00 Test Item Value Reference Range Interpretation Comments Bili Direct (test code 0.2 See_Comment [Aut omated message] The = Bili Direct) system which generated this result tra nsmitted reference range : <=0.3. The reference r olinda was not used to int erpret this result as mary l/abnormal. [facility] SXWNF8503-00-11 15:02:00 Test Item Value Reference Range Interpretation Comments Bili Indirect (test 1.3 See_Comment [Automa zoey message] The code = Bili Indirect) system which generated this result tra nsmitted reference range : <=1.0. The reference r olinda was not used to int erpret this result as normal/abnormal . [facility] TMOFP5107-23-17 15:02:00 Test Item Value Reference Range Interpretation Comments Globulin (test code = Globulin) 4.2 2.7-4.2 [facility] NJKIU3654-33-10 15:02:00 Test Item Value Reference Range Interpretation Comments A/G Ratio (test code = A/G Ratio) 1.0 1 0.7-1.6 [facility] VGXOI2662-55-94 15:02:00 Test Item Value Reference Range Interpretation Comments Lipase Lvl (test code = Lipase Lvl) 90 73-393 [place] 88195022-02-18 15:02:00 Test Item Value Reference Range Interpretation Comments S Preg (test code = S Negative *NA*(09/28/21 Preg) 9:02 AM) [facility] RockJsowgouCYVKUCCPFI3890-87-58 15:02:00 Test Item Value Reference Range Interpretation Comments WBC (test code = WBC) 15.7 3.7-10.4 [facility] HospitalNmtwvcjSNCEXGFEOU7198-69-88 15:02:00 Test Item Value Reference Range Interpretation Comments RBC (test code = RBC) 5.19 4.20-5.40 [facility] HospitalJbdkwdxGMKRRKWJCX2102-17-11 15:02:00 Test Item Value Reference Range Interpretation Comments Hgb (test code = Hgb) 15.7 12.0-16.0 [facility] RockGpfrfioJKJHDNABVT6854-77-10 15:02:00 Test Item Value Reference Range Interpretation Comments Hct (test code = Hct) 45.6 36.0-48.0 [facility] HospitalJynylroKJWOAVLVGY9196-38-28 15:02:00 Test Item Value Reference Range Interpretation Comments MCV (test code = MCV) 87.9 80.0-98.0 [facility] HospitalOnjinwzZGVBPYIHXK5864-60-29 15:02:00 Test Item Value Reference Range Interpretation Comments MCH (test code = MCH) 30.2 pg 27.0-31.0 [facility] RockHjthngiNMLCWLXIUL3068-98-15 15:02:00 Test Item Value Reference Range Interpretation Comments MCHC (test code = MCHC) 34.4 32.0-36.0 [facility], vgwms7608-19-49 10:15:00 Test Item Value Reference Range Interpretation Comments Helicobacter pylori antigen, stool Negative Negative (test code = 19518) [facility]park[facility] glutamyl transferase, ykkhm4510-92-55 10:23:00 Test Item Value Reference Range Interpretation Comments gamma glutamyl transferase, serum 20 1/L 0-60 (test code = 25) [facility]parkalanine aminotransferase (SGPT), obwjt5926-62-20 10:23:00 Test Item Value Reference Range Interpretation Comments alanine aminotransferase (SGPT), serum 24 1/L 0-32 (test code = 1742-6) [facility]parkaspartate aminotransferase (SGOT), esmus9890-22-43 10:23:00 Test Item Value Reference Range Interpretation Comments aspartate aminotransferase (SGOT), 18 1/L 0-40 serum (test code = 1920-8) [facility]parkalkaline phosphatase, mnkcm9626-75-66 10:23:00 Test Item Value Reference Range Interpretation Comments alkaline phosphatase, serum (test code 48 1/L 48-121 = 1783-0) [facility] Healthbilirubin, serum, oblan4455-56-15 10:23:00 Test Item Value Reference Range Interpretation Comments bilirubin, serum, total (test code 0.6 mg/dL 0.0-1.2 = 1975-2) [facility] Healthalbumin/globulin ratio, mscsk6764-82-73 10:23:00 Test Item Value Reference Range Interpretation Comments albumin/globulin ratio, 1.8 (unknown unit) 1.2-2.2 serum (test code = 1759-0) [facility] Healthglobulin, hzsqd4488-99-61 10:23:00 Test Item Value Reference Range Interpretation Comments globulin, serum (test code 2.5 (unknown unit) 1.5-4.5 = 2336-6) [facility] Healthalbumin, dbtzo1469-80-88 10:23:00 Test Item Value Reference Range Interpretation Comments albumin, serum (test code = 1751-7) 4.5 g/dL 3.8-4.8 [facility]parkprotein, total, hfkxj5951-15-28 10:23:00 Test Item Value Reference Range Interpretation Comments protein, total, serum (test code = 7.0 g/dL 6.0-8.5 2885-2) [facility]parkcalcium, sgyoq8356-17-90 10:23:00 Test Item Value Reference Range Interpretation Comments calcium, serum (test code = 1999-8) 9.6 mg/dL 8.7-10.2 [facility]parkcarbon dioxide, venous ycdyv7314-94-75 10:23:00 Test Item Value Reference Range Interpretation Comments carbon dioxide, venous blood (test 20 mmol/L 20-29 code = 7-1) [facility]parkchloride, aijlj3216-58-28 10:23:00 Test Item Value Reference Range Interpretation Comments chloride, serum (test code = 104 mmol/L 96-106 5-0) [facility]parkpotassium, iopgz2461-03-12 10:23:00 Test Item Value Reference Range Interpretation Comments potassium, serum (test code = 4.6 mmol/L 3.5-5.2 2823-3) [facility]parksodium, rddbn0971-75-11 10:23:00 Test Item Value Reference Range Interpretation Comments sodium, serum (test code = 2951-2) 141 mmol/L 134-144 [facility]parkurea nitrogen/creatinine ratio, drnrx0839-15-72 10:23:00 Test Item Value Reference Range Interpretation Comments urea nitrogen/creatinine 13 (unknown unit) 9-23 ratio, serum (test code = 3097-3) [facility] HealtheGFR if Gpwxsusv1363-61-13 10:23:00 Test Item Value Reference Range Interpretation Comments eGFR if 133 mL/min/{1.73 m2} >59 (test code = 68178-5) [facility] SouthparkEstimated Glomerular Filtration Rate (calc)2021-02-14 10:23:00 Test Item Value Reference Range Interpretation Comments Estimated Glomerular 116 mL/min/{1.73 m2} >59 Filtration Rate (calc) (test code = 72982-5) [facility]parkcreatinine, qgrnl8258-36-22 10:23:00 Test Item Value Reference Range Interpretation Comments creatinine, serum (test code = 0.63 mg/dL 0.57-1.00 2160-0) [facility]park[facility]a nitrogen, yeajj8258-13-45 10:23:00 Test Item Value Reference Range Interpretation Comments urea nitrogen, blood (test code = 8 mg/dL 6-20 3094-0) [facility]parkblood glucose, tiwugx9209-73-40 10:23:00 Test Item Value Reference Range Interpretation Comments blood glucose, random (test code = 96 mg/dL 65-99 2339-0) [facility]parkimmature granulocytes, percentage of total cells, blood 2021-02-14 10:23:00 Test Item Value Reference Range Interpretation Comments immature granulocytes, percentage of 1 % total cells, blood (test code = 73273-3) [facility]parkbasophil count, pcepbaqo2141-12-32 10:23:00 Test Item Value Reference Range Interpretation Comments basophil count, absolute (test 0.1 x10E3/uL 0.0-0.2 code = 69445-2) [facility]parkEosinophil Absolute Ypacc5897-47-12 10:23:00 Test Item Value Reference Range Interpretation Comments Eosinophil Absolute Count (test 0.2 X10E3/UL 0.0-0.4 code = 10376-5) [facility], blood, kpaynlzsr0766-21-75 10:23:00 Test Item Value Reference Range Interpretation Comments monocyte count, blood, automated 1.0 X10E3/UL 0.1-0.9 H (test code = 742-7) [facility]parklymphocyte count, blood, odivhgmxi7006-78-67 10:23:00 Test Item Value Reference Range Interpretation Comments lymphocyte count, blood, 1.7 X10E3/UL 0.7-3.1 automated (test code = 731-0) [facility]parkAbsolute Abeierkmyas6656-04-38 10:23:00 Test Item Value Reference Range Interpretation Comments Absolute Neutrophils (test code 10.1 X10E3/UL 1.4-7.0 H = 82574-8) [facility] Healthbasophils as percent of blood uwsuygdsda6102-99-96 10:23:00 Test Item Value Reference Range Interpretation Comments basophils as percent of blood 1 % leukocytes (test code = 707-0) [facility]parkeosinophils as percent of blood bfosvgsgxp0061-31-65 10:23:00 Test Item Value Reference Range Interpretation Comments eosinophils as percent of blood 2 % leukocytes (test code = 713-8) [facility] Healthmonocytes as percent of blood bcevvvxnts6327-07-74 10:23:00 Test Item Value Reference Range Interpretation Comments monocytes as percent of blood 7 % leukocytes (test code = 5905-5) [facility] of blood vjmnmekpwf2031-44-69 10:23:00 Test Item Value Reference Range Interpretation Comments lymphocytes as percent of blood 13 % leukocytes (test code = 736-9) [facility]rophils as percent of blood [id number] 10:23:00 Test Item Value Reference Range Interpretation Comments neutrophils as percent of blood 76 % leukocytes (test code = 770-8) [facility]parkplatelet [id number] 10:23:00 Test Item Value Reference Range Interpretation Comments platelet count (test code = 545 X10E3/UL 150-450 H 777-3) [facility]red blood cell distribution [id number] 10:23:00 Test Item Value Reference Range Interpretation Comments red blood cell distribution width 14.9 % 11.7-15.4 (test code = 788-0) [facility], [id number] 10:23:00 Test Item Value Reference Range Interpretation Comments mean corpuscular hemoglobin 30.5 G/DL 31.5-35.7 L concentration, RBC (test code = 786-4) [facility], [id number] 10:23:00 Test Item Value Reference Range Interpretation Comments mean corpuscular hemoglobin, RBC 23.8 pg 26.6-33.0 L (test code = 785-6) [facility], [id number] 10:23:00 Test Item Value Reference Range Interpretation Comments mean corpuscular volume, RBC (test code 78 fL 79-97 L = 787-2) [facility]hematocrit, morro9195-08-73 10:23:00 Test Item Value Reference Range Interpretation Comments hematocrit, blood (test code = 4544-3) 34.8 % 34.0-46.6 [facility]hemoglobin, [id number] 10:23:00 Test Item Value Reference Range Interpretation Comments hemoglobin, blood (test code = 10.6 g/dL 11.1-15.9 L 718-7) [facility]throcyte (RBC) [id number] 10:23:00 Test Item Value Reference Range Interpretation Comments erythrocyte (RBC) count (test 4.46 X10E6/UL 3.77-5.28 code = 789-8) [facility]ukocyte count, [id number] 10:23:00 Test Item Value Reference Range Interpretation Comments leukocyte count, blood (test 13.1 X10E3/UL 3.4-10.8 H code = 6690-2) [facility]parkreticulocyte count, tqiuhgcab3352-83-03 10:23:00 Test Item Value Reference Range Interpretation Comments reticulocyte count, corrected (test 1.3 % 0.6-2.6 code = 56157-5) [facility]ferritin, [id number] 10:23:00 Test Item Value Reference Range Interpretation Comments ferritin, serum (test code = 2276-4) 7 ng/mL 15-150 L [facility] saturation percent, [id number] 10:23:00 Test Item Value Reference Range Interpretation Comments iron saturation percent, serum (test 5 % 15-55 LL code = 2502-3) [facility], [id number] 10:23:00 Test Item Value Reference Range Interpretation Comments iron, serum (test code = 2498-4) 19 ug/dL 27-159 L [facility] binding capacity, hodfuhcyuht5829-27-02 10:23:00 Test Item Value Reference Range Interpretation Comments iron binding capacity, unsaturated 345 ug/dL 131-425 (test code = 2501-5) [facility] binding capacity, byhwa3634-06-12 10:23:00 Test Item Value Reference Range Interpretation Comments iron binding capacity, total (test 364 ug/dL 250-450 code = 2500-7) [facility]DR[facility] [id number] 16:50:00 Test Item Value Reference Range Interpretation Comments U Amph Scr (test code Negative *NA*(01/27/21 = U Amph Scr) 11:50 AM) [facility] [id number] 16:50:00 Test Item Value Reference Range Interpretation Comments U Gege Scr (test code Negative *NA*(01/27/21 = U Gege Scr) 11:50 AM) [facility] [id number] 16:50:00 Test Item Value Reference Range Interpretation Comments U Benzodiaz Scr (test Negative *NA*(01/27/21 code = U Benzodiaz Scr) 11:50 AM) [facility] [id number] 16:50:00 Test Item Value Reference Range Interpretation Comments U Cannab Scr (test Positive *ABN*(01/27/21 code = U Cannab Scr) 11:50 AM) [facility] [id number] 16:50:00 Test Item Value Reference Range Interpretation Comments U Cocaine Scr (test Negative *NA*(01/27/21 code = U Cocaine Scr) 11:50 AM) [facility] [id number] 16:50:00 Test Item Value Reference Range Interpretation Comments U Opiate Scr (test Negative *NA*(01/27/21 code = U Opiate Scr) 11:50 AM) [facility] [id number] 16:50:00 Test Item Value Reference Range Interpretation Comments U Phencyclidine Scr (test Negative code = U Phencyclidine *NA*(01/27/21 11:50 Scr) AM) [facility] [id number] 16:50:00 Test Item Value Reference Range Interpretation Comments UDS Note (test code = See Note (01/27/21 11:50 UDS Note) AM) [facility] [id number] 16:50:00 Test Item Value Reference Range Interpretation Comments UA Color (test code = Light Yellow UA Color) *NA*(01/27/21 11:50 AM) [facility] [id number] 16:50:00 Test Item Value Reference Range Interpretation Comments UA Turbidity (test code = Clear (01/27/21 11:50 UA Turbidity) AM) [facility] [id number] 16:50:00 Test Item Value Reference Range Interpretation Comments UA Spec Grav (test code = UA Spec 1.011 1 Grav) [facility] [id number] 16:50:00 Test Item Value Reference Range Interpretation Comments UA pH (test code = UA pH) 6.0 1 5.0-8.0 [facility] [id number] 16:50:00 Test Item Value Reference Range Interpretation Comments UA Protein (test code = UA Protein) 30 mg/dL [facility] [id number] 16:50:00 Test Item Value Reference Range Interpretation Comments UA Glucose (test code = UA Negative mg/dL Glucose) [facility] [id number] 16:50:00 Test Item Value Reference Range Interpretation Comments UA Ketones (test code = UA Trace mg/dL Ketones) [facility] [id number] 16:50:00 Test Item Value Reference Range Interpretation Comments UA Bili (test code = Negative *NA*(01/27/21 UA Bili) 11:50 AM) [facility] [id number] 16:50:00 Test Item Value Reference Range Interpretation Comments UA Blood (test code = Small *ABN*(01/27/21 UA Blood) 11:50 AM) [facility] [id number] 16:50:00 Test Item Value Reference Range Interpretation Comments UA Nitrite (test code Negative (01/27/21 11:50 = UA Nitrite) AM) [facility] AND [id number] 16:50:00 Test Item Value Reference Range Interpretation Comments UA Leuk Est (test code Trace *ABN*(01/27/21 = UA Leuk Est) 11:50 AM) [facility] AND [id number] 16:50:00 Test Item Value Reference Range Interpretation Comments UA Sq Epi (test code = UA Sq Epi) Many /LPF [facility] AND [id number] 16:50:00 Test Item Value Reference Range Interpretation Comments UA WBC (test code = 2 See_Comment [Automa zoey message] The UA WBC) system which ge nerated this result transmit zoey reference range : <=5. The reference range was not used to interpr et this result as mary l/abnormal. [facility] AND [id number] 16:50:00 Test Item Value Reference Range Interpretation Comments UA RBC (test code = 2 See_Comment [Automa zoey message] The UA RBC) system which ge nerated this result transmit zoey reference range : <=2. The reference range was not used to interpr et this result as mary l/abnormal. [facility] AND [id number] 16:50:00 Test Item Value Reference Range Interpretation Comments UA Bacteria (test code = UA Occasional /HPF Bacteria) [facility] AND [id number] 16:50:00 Test Item Value Reference Range Interpretation Comments UA Mucus (test code = UA Mucus) Few /LPF [facility] AND [id number] 16:50:00 Test Item Value Reference Range Interpretation Comments UA Urobilinogen (test code = UA <=1.0 mg/dL 0.1-1.0 Urobilinogen) [facility]2021-06-19 15:28:00 Test Item Value Reference Range Interpretation Comments Glucose Lvl (test code = Glucose Lvl) 117 70-[address] [facility]2021-06-19 15:28:00 Test Item Value Reference Range Interpretation Comments BUN (test code = BUN) 14 7-[address] [facility]2021-06-19 15:28:00 Test Item Value Reference Range Interpretation Comments Creatinine Lvl (test code = Creatinine 1.00 0.50-1.40 Lvl) [place] 830181-06-19 15:28:00 Test Item Value Reference Range Interpretation Comments Sodium Lvl (test code = Sodium Lvl) 138 135-145 [place] 830181-06-19 15:28:00 Test Item Value Reference Range Interpretation Comments Potassium Lvl (test code = Potassium 2.7 3.5-5.1 Lvl) [place] 830181-06-19 15:28:00 Test Item Value Reference Range Interpretation Comments Chloride Lvl (test code = Chloride Lvl) 102 95-109 [place] 830181-06-19 15:28:00 Test Item Value Reference Range Interpretation Comments CO2 (test code = CO2) 23 24-32 [place] 830181-06-19 15:28:00 Test Item Value Reference Range Interpretation Comments AGAP (test code = AGAP) 15.7 10.0-20.0 [place] 830181-06-19 15:28:00 Test Item Value Reference Range Interpretation Comments Calcium Lvl (test code = Calcium Lvl) 10.0 8.5-10.5 [place] 830181-06-19 15:28:00 Test Item Value Reference Range Interpretation Comments eGFR (test code = eGFR) 73 [place] 830181-06-19 15:28:00 Test Item Value Reference Range Interpretation Comments Lipase Lvl (test code = Lipase Lvl) 80 73-[address] [facility]2021-06-19 15:28:00 Test Item Value Reference Range Interpretation Comments Total Protein (test code = Total 9.0 6.4-8.4 Protein) [place] 830181-06-19 15:28:00 Test Item Value Reference Range Interpretation Comments Albumin Lvl (test code = Albumin Lvl) 4.5 3.5-5.0 [place] 830181-06-19 15:28:00 Test Item Value Reference Range Interpretation Comments ALT (test code = ALT) 26 See_Comment [Auto mated message] The system which ge nerated this result transmit zoey reference range : <=65. The reference range was not used to interpr et this result as mary l/abnormal. [place] 830181-06-19 15:28:00 Test Item Value Reference Range Interpretation Comments AST (test code = AST) 18 See_Comment [Auto mated message] The system which ge nerated this result transmit zoey reference range : <=37. The reference range was not used to interpr et this result as mary l/abnormal. [facility]2021-06-19 15:28:00 Test Item Value Reference Range Interpretation Comments Alk Phos (test code = Alk Phos) 56 39-[address] [facility]2021-06-19 15:28:00 Test Item Value Reference Range Interpretation Comments Bili Total (test code = Bili Total) 1.4 0.2-1.[address] [facility]2021-06-19 15:28:00 Test Item Value Reference Range Interpretation Comments Bili Direct (test code 0.3 See_Comment [Aut omated message] The = Bili Direct) system which generated this result tra nsmitted reference range : <=0.3. The reference r olinda was not used to int erpret this result as mary l/abnormal. [facility]2021-06-19 15:28:00 Test Item Value Reference Range Interpretation Comments Bili Indirect (test 1.1 See_Comment [Automa zoey message] The code = Bili Indirect) system which generated this result tra nsmitted reference range : <=1.0. The reference r olinda was not used to int erpret this result as normal/abnormal . [facility]2021-06-19 15:28:00 Test Item Value Reference Range Interpretation Comments Globulin (test code = Globulin) 4.5 2.7-4.[address] [facility]2021-06-19 15:28:00 Test Item Value Reference Range Interpretation Comments A/G Ratio (test code = A/G Ratio) 1.0 1 0.7-1.6 [facility]RcfgxgfJZTAAEDJIMWRN2325-23-84 15:28:00 Test Item Value Reference Range Interpretation Comments hCG Tot (test code = hCG Tot) no gt [facility] RockDlvulisMTCLDIWBLW1618-33-02 15:28:00 Test Item Value Reference Range Interpretation Comments WBC (test code = WBC) 19.9 3.7-10.4 [facility] RockFldwcjmTJIQDLXVQZ2013-56-26 15:28:00 Test Item Value Reference Range Interpretation Comments RBC (test code = RBC) 5.39 4.20-5.40 [facility] RockVpdnyxcDKPSAGPWOV3752-98-77 15:28:00 Test Item Value Reference Range Interpretation Comments Hgb (test code = Hgb) 12.9 12.0-16.0 [facility] RockRlocqstOLQBHWIHTW7711-85-94 15:28:00 Test Item Value Reference Range Interpretation Comments Hct (test code = Hct) 39.6 36.0-48.0 [facility] RockEqsgqbfKGSOCTQHUN4199-76-70 15:28:00 Test Item Value Reference Range Interpretation Comments MCV (test code = MCV) 73.5 80.0-98.0 [facility] RockGrsoonpKKRJKTWPDZ4128-27-86 15:28:00 Test Item Value Reference Range Interpretation Comments MCH (test code = MCH) 24.0 pg 27.0-31.0 [facility] RockOlyzlhtWYZCCESFTH4766-73-94 15:28:00 Test Item Value Reference Range Interpretation Comments MCHC (test code = MCHC) 32.6 32.0-36.0 [facility] RockJnbydfoPPZYCRHKES8649-16-80 15:28:00 Test Item Value Reference Range Interpretation Comments RDW (test code = RDW) 15.6 11.5-14.5 [facility] RockQngsirrETMASOIVRH4145-01-66 15:28:00 Test Item Value Reference Range Interpretation Comments Platelet (test code = Platelet) 531 133-450 [facility] RockIrgdxiiZEXWCAJGOU8074-44-16 15:28:00 Test Item Value Reference Range Interpretation Comments MPV (test code = MPV) 8.4 7.4-10.4 [facility] RockFraaheeTLVAMPCCWA5466-22-89 15:28:00 Test Item Value Reference Range Interpretation Comments Plt Morph (test code = Normal (01/27/21 10:28 Plt Morph) AM) [facility] RockMlkiuhuOXENHJBNJP9206-56-78 15:28:00 Test Item Value Reference Range Interpretation Comments Segs (test code = Segs) 83.1 45.0-75.0 [facility] RockNcljoxiGWDTTKTBDP9303-70-80 15:28:00 Test Item Value Reference Range Interpretation Comments Lymphocytes (test code = Lymphocytes) 8.6 20.0-40.0 [facility] RockWbxhibzAGEUPMGTTG2001-19-83 15:28:00 Test Item Value Reference Range Interpretation Comments Monocytes (test code = Monocytes) 7.8 2.0-12.0 [place] 393391-06-19 15:28:00 Test Item Value Reference Range Interpretation Comments Eosinophils (test code = 0.1 See_Comment [A utomated message] The Eosinophils) system which ge nerated this result tra nsmitted reference range : <=4.0. The reference r olinda was not used to int erpret this result as normal/abnormal . [place] 393391-06-19 15:28:00 Test Item Value Reference Range Interpretation Comments Basophils (test code = 0.4 See_Comment [Aut omated message] The Basophils) system which ge nerated this result tra nsmitted reference range : <=1.0. The reference r olinda was not used to int erpret this result as normal/abnormal . [place] 393391-06-19 15:28:00 Test Item Value Reference Range Interpretation Comments Neutrophils # (test code = Neutrophils 16.7 1.5-8.1 #) [facility] RockVydwpneUSUNFGVUCM6604-62-00 15:28:00 Test Item Value Reference Range Interpretation Comments Lymphocytes # (test code = Lymphocytes 1.7 1.0-5.5 #) [place] 393391-06-19 15:28:00 Test Item Value Reference Range Interpretation Comments Monocytes # (test code 1.6 See_Comment [Aut omated message] The = Monocytes #) system which generated this result tra nsmitted reference range : <=0.8. The reference r olinda was not used to int erpret this result as normal/abnormal . [facility] RockZiojurtMWOELOCMBB0598-65-33 15:28:00 Test Item Value Reference Range Interpretation Comments Eosinophils # (test code 0.0 See_Comment [A utomated message] The = Eosinophils #) system whic h generated this result tra nsmitted reference range : <=0.5. The reference r olinda was not used to int erpret this result as normal/abnormal . [facility] RockQhmfucjFJOEIHJKUU0305-17-84 15:28:00 Test Item Value Reference Range Interpretation Comments Basophils # (test code 0.1 See_Comment [Aut omated message] The = Basophils #) system which generated this result tra nsmitted reference range : <=0.2. The reference r olinda was not used to int erpret this result as normal/abnormal . [place] 393391-06-19 15:28:00 Test Item Value Reference Range Interpretation Comments Microcyte (test code = 2+ *ABN*(01/27/21 Microcyte) 10:28 AM) [facility] OrxxlldCQDDWGAUJV5648-43-21 15:28:00 Test Item Value Reference Range Interpretation Comments Ethanol Lvl (test code = Ethanol Lvl) no gt [facility] WvtojlmHEVKHRXDWE0959-49-51 15:28:00 Test Item Value Reference Range Interpretation Comments Etoh (%) (test code = Etoh (%)) no gt [facility]eryth[facility] (RBC) [id number] 15:47:00 Test Item Value Reference Range Interpretation Comments erythrocyte (RBC) count (test 4.67 X10E6/UL 3.77-5.28 code = 789-8) [facility]ukocyte count, iaifa3851-76-63 15:47:00 Test Item Value Reference Range Interpretation Comments leukocyte count, blood (test 11.6 X10E3/UL 3.4-10.8 H code = 6690-2) [facility]parkthyroid stimulating hormone, efpjz9222-21-50 15:47:00 Test Item Value Reference Range Interpretation Comments thyroid stimulating hormone, 2.650 u[IU]/mL 0.450-4.500 serum (test code = 3016-3) [facility]parkHIV-CMIA (Chemiluminescent Microparticle Immuno Assay) 2021-01-24 15:47:00 Test Item Value Reference Range Interpretation Comments HIV-CMIA (Chemiluminescent Non Reactive Non Reactive Microparticle Immuno Assay) (test code = 916677) [facility]parkvitamin D 25-hydroxy, bpavk5715-93-16 15:47:00 Test Item Value Reference Range Interpretation Comments vitamin D 25-hydroxy, serum (test 44.9 ng/mL 30.0-100.0 code = 62486-3) [facility]parkhemoglobin A1C, blood, as % of total mrrgufiolh7600-64-31 15:47:00 Test Item Value Reference Range Interpretation Comments hemoglobin A1C, blood, as % of total 5.8 % 4.8-5.6 H hemoglobin (test code = 4548-4) [facility]parkfollicle stimulating hormone, gmnuq2091-81-34 15:47:00 Test Item Value Reference Range Interpretation Comments follicle stimulating hormone, 1.8 m[IU]/mL serum (test code = 2286-3) [facility]parkluteinizing hormone, fwkwr4955-54-83 15:47:00 Test Item Value Reference Range Interpretation Comments luteinizing hormone, serum (test 4.6 m[IU]/mL code = 23180-5) [facility]parkLDL cholesterol, mvvme0544-15-86 15:47:00 Test Item Value Reference Range Interpretation Comments LDL cholesterol, serum (test code = 72 mg/dL 0-99 2088-1) [facility]parkvery low density otlyhtcznarx0328-30-89 15:47:00 Test Item Value Reference Range Interpretation Comments very low density lipoproteins (test 17 mg/dL 5-40 code = 1-7) [facility]parkHDL cholesterol, ypcmt2775-30-29 15:47:00 Test Item Value Reference Range Interpretation Comments HDL cholesterol, serum (test code = 45 mg/dL >39 2084-9) [facility]parktriglyceride, serum, kvtltrr2363-20-45 15:47:00 Test Item Value Reference Range Interpretation Comments triglyceride, serum, fasting (test 87 mg/dL 0-149 code = 2571-8) [facility]cholesterol, pdlwo5979-30-93 15:47:00 Test Item Value Reference Range Interpretation Comments cholesterol, serum (test code = 134 mg/dL 863-276 7825-3) [facility]parkalanine aminotransferase (SGPT), asfqk4750-51-65 15:47:00 Test Item Value Reference Range Interpretation Comments alanine aminotransferase (SGPT), serum 16 1/L 0-32 (test code = 1742-6) [facility]parkaspartate aminotransferase (SGOT), lgpwj6977-59-65 15:47:00 Test Item Value Reference Range Interpretation Comments aspartate aminotransferase (SGOT), 15 1/L 0-40 serum (test code = 1920-8) [facility]parkalkaline phosphatase, rjbsr8875-29-41 15:47:00 Test Item Value Reference Range Interpretation Comments alkaline phosphatase, serum (test code 46 1/L 48-121 L = 1783-0) [facility]bilirubin, serum, patfi9265-92-43 15:47:00 Test Item Value Reference Range Interpretation Comments bilirubin, serum, total (test code 0.5 mg/dL 0.0-1.2 = 1975-2) [facility] Healthalbumin/globulin ratio, mhqop7071-00-66 15:47:00 Test Item Value Reference Range Interpretation Comments albumin/globulin ratio, 1.8 (unknown unit) 1.2-2.2 serum (test code = 1759-0) [facility] Healthglobulin, hbgwg4543-62-14 15:47:00 Test Item Value Reference Range Interpretation Comments globulin, serum (test code 2.5 (unknown unit) 1.5-4.5 = 2336-6) [facility] Healthalbumin, lyjdl2834-93-64 15:47:00 Test Item Value Reference Range Interpretation Comments albumin, serum (test code = 1751-7) 4.6 g/dL 3.8-4.8 [facility]protein, total, hqyfv9469-05-32 15:47:00 Test Item Value Reference Range Interpretation Comments protein, total, serum (test code = 7.1 g/dL 6.0-8.5 2885-2) [facility]parkcalcium, jfyns3544-43-65 15:47:00 Test Item Value Reference Range Interpretation Comments calcium, serum (test code = 2000-03) 9.8 mg/dL 8.7-10.2 [facility]parkcarbon dioxide, venous hlwkg2064-86-73 15:47:00 Test Item Value Reference Range Interpretation Comments carbon dioxide, venous blood (test 23 mmol/L 20-29 code = 7-1) [facility]parkchloride, fldpr5861-60-58 15:47:00 Test Item Value Reference Range Interpretation Comments chloride, serum (test code = 105 mmol/L 96-106 5-0) [facility]parkpotassium, xgezs0417-82-03 15:47:00 Test Item Value Reference Range Interpretation Comments potassium, serum (test code = 4.9 mmol/L 3.5-5.2 2823-3) [facility]parksodium, ionof2266-32-40 15:47:00 Test Item Value Reference Range Interpretation Comments sodium, serum (test code = 2951-2) 143 mmol/L 134-144 [facility]parkurea nitrogen/creatinine ratio, pwauw8055-21-55 15:47:00 Test Item Value Reference Range Interpretation Comments urea nitrogen/creatinine 9 (unknown unit) 9-23 ratio, serum (test code = 3097-3) [facility] HealtheGFR if Zmuvhlsi9113-77-20 15:47:00 Test Item Value Reference Range Interpretation Comments eGFR if 102 mL/min/{1.73 m2} >59 (test code = 91512-4) [facility]parkEstimated Glomerular Filtration Rate (calc)2021-01-24 15:47:00 Test Item Value Reference Range Interpretation Comments Estimated Glomerular 88 mL/min/{1.73 m2} >59 Filtration Rate (calc) (test code = 57926-2) [facility]parkcreatinine, lklul0190-90-91 15:47:00 Test Item Value Reference Range Interpretation Comments creatinine, serum (test code = 0.85 mg/dL 0.57-1.00 2160-0) [facility]parkurea nitrogen, pbnhf1562-33-10 15:47:00 Test Item Value Reference Range Interpretation Comments urea nitrogen, blood (test code = 8 mg/dL 6-20 3094-0) [facility]parkblood glucose, jdflmt7309-81-45 15:47:00 Test Item Value Reference Range Interpretation Comments blood glucose, random (test code = 96 mg/dL 65-99 2339-0) [facility]parkimmature granulocytes, percentage of total cells, blood 2021-01-24 15:47:00 Test Item Value Reference Range Interpretation Comments immature granulocytes, percentage of 1 % total cells, blood (test code = 49111-3) [facility]parkbasophil count, bgwgehlu0770-52-09 15:47:00 Test Item Value Reference Range Interpretation Comments basophil count, absolute (test 0.1 x10E3/uL 0.0-0.2 code = 76404-7) [facility]parkEosinophil Absolute Nkspn3497-33-38 15:47:00 Test Item Value Reference Range Interpretation Comments Eosinophil Absolute Count (test 0.4 X10E3/UL 0.0-0.4 code = 71740-2) [facility], rcdzsgvle4912-82-00 15:47:00 Test Item Value Reference Range Interpretation Comments monocyte count, blood, automated 1.0 X10E3/UL 0.1-0.9 H (test code = 742-7) [facility], blood, yirxzjtse5191-25-95 15:47:00 Test Item Value Reference Range Interpretation Comments lymphocyte count, blood, 2.3 X10E3/UL 0.7-3.1 automated (test code = 731-0) [facility]Absolute Alebbnxbgul1603-18-68 15:47:00 Test Item Value Reference Range Interpretation Comments Absolute Neutrophils (test code 7.7 X10E3/UL 1.4-7.0 H = 76995-8) [facility]ophils as percent of blood rfwxgzfnuo6177-34-39 15:47:00 Test Item Value Reference Range Interpretation Comments basophils as percent of blood 0 % leukocytes (test code = 707-0) [facility]ke[facility]ophils [facility] percent of blood muljfevucm5229-01-46 15:47:00 Test Item Value Reference Range Interpretation Comments eosinophils as percent of blood 4 % leukocytes (test code = 713-8) [facility]ocytes as percent of blood yogzvznrvj5386-09-16 15:47:00 Test Item Value Reference Range Interpretation Comments monocytes as percent of blood 9 % leukocytes (test code = 5905-5) [facility]ocytes as percent of blood noamswsawe3501-11-21 15:47:00 Test Item Value Reference Range Interpretation Comments lymphocytes as percent of blood 20 % leukocytes (test code = 736-9) [facility]rophils as percent of blood uvsalentjq2011-10-14 15:47:00 Test Item Value Reference Range Interpretation Comments neutrophils as percent of blood 66 % leukocytes (test code = 770-8) [facility]parkplatelet iegsj7836-72-45 15:47:00 Test Item Value Reference Range Interpretation Comments platelet count (test code = 472 X10E3/UL 150-450 H 777-3) [facility] blood cell distribution ekucp3897-43-26 15:47:00 Test Item Value Reference Range Interpretation Comments red blood cell distribution width 14.3 % 11.7-15.4 (test code = 788-0) [facility] corpuscular hemoglobin concentration, [id number] 15:47:00 Test Item Value Reference Range Interpretation Comments mean corpuscular hemoglobin 31.1 G/DL 31.5-35.7 L concentration, RBC (test code = 786-4) [facility] corpuscular hemoglobin, [id number] 15:47:00 Test Item Value Reference Range Interpretation Comments mean corpuscular hemoglobin, RBC 23.8 pg 26.6-33.0 L (test code = 785-6) [facility] corpuscular volume, [id number] 15:47:00 Test Item Value Reference Range Interpretation Comments mean corpuscular volume, RBC (test code 76 fL 79-97 L = 787-2) [facility]hematocrit, whlgz3927-98-11 15:47:00 Test Item Value Reference Range Interpretation Comments hematocrit, blood (test code = 4544-3) 35.7 % 34.0-46.6 [facility]hemoglobin, [id number] 15:47:00 Test Item Value Reference Range Interpretation Comments hemoglobin, blood (test code = 11.1 g/dL 11.1-15.9 718-7) [facility]parkCARDIAC [id number] 14:51:00 Test Item Value Reference Range Interpretation Comments Troponin-I (test code no gt See_Comment [Auto mated message] The = Troponin-I) system which g enerated this result transmit zoey reference range : <=0.40. The reference r olinda was not used to interpr et this result as mary l/abnormal. [facility] [id number] 14:51:00 Test Item Value Reference Range Interpretation Comments Glucose Lvl (test code = Glucose Lvl) 130 70-99 [facility] [id number] 14:51:00 Test Item Value Reference Range Interpretation Comments BUN (test code = BUN) 18 7-22 [facility] [id number] 14:51:00 Test Item Value Reference Range Interpretation Comments Creatinine Lvl (test code = Creatinine 1.00 0.50-1.40 Lvl) [facility] [id number] 14:51:00 Test Item Value Reference Range Interpretation Comments Sodium Lvl (test code = Sodium Lvl) 140 135-145 [facility] [id number] 14:51:00 Test Item Value Reference Range Interpretation Comments Potassium Lvl (test code = Potassium 2.8 3.5-5.1 Lvl) [place] 830180-11-07 14:51:00 Test Item Value Reference Range Interpretation Comments Chloride Lvl (test code = Chloride Lvl) 104 95-109 [place] [address]-11-07 14:51:00 Test Item Value Reference Range Interpretation Comments CO2 (test code = CO2) 24 24-32 [place] [address]-11-07 14:51:00 Test Item Value Reference Range Interpretation Comments AGAP (test code = AGAP) 14.8 10.0-20.0 [address]11-07 14:51:00 Test Item Value Reference Range Interpretation Comments Calcium Lvl (test code = Calcium Lvl) 9.6 8.5-10.5 [place] [address]-11-07 14:51:00 Test Item Value Reference Range Interpretation Comments eGFR (test code = eGFR) 73 [place] [address]-11-07 14:51:00 Test Item Value Reference Range Interpretation Comments Lipase Lvl (test code = Lipase Lvl) 80 73-393 [place] [address]-11-07 14:51:00 Test Item Value Reference Range Interpretation Comments Albumin Lvl (test code = Albumin Lvl) 4.9 3.5-5.0 [place] 830180-11-07 14:51:00 Test Item Value Reference Range Interpretation Comments ALT (test code = ALT) 29 See_Comment [Auto mated message] The system which ge nerated this result transmit zoey reference range : <=65. The reference range was not used to interpr et this result as mary l/abnormal. [place] 830180-11-07 14:51:00 Test Item Value Reference Range Interpretation Comments AST (test code = AST) 21 See_Comment [Auto mated message] The system which ge nerated this result transmit zoey reference range : <=37. The reference range was not used to interpr et this result as mary l/abnormal. [place] [address]-11-07 14:51:00 Test Item Value Reference Range Interpretation Comments Bili Direct (test code 0.4 See_Comment [Aut omated message] The = Bili Direct) system which generated this result tra nsmitted reference range : <=0.3. The reference r olinda was not used to int erpret this result as mary l/abnormal. [facility]2020-11-07 14:51:00 Test Item Value Reference Range Interpretation Comments Total Protein (test code = Total 9.1 6.4-8.4 Protein) [facility]2020-11-07 14:51:00 Test Item Value Reference Range Interpretation Comments Alk Phos (test code = Alk Phos) 49 39-[address] [facility]2020-11-07 14:51:00 Test Item Value Reference Range Interpretation Comments Bili Total (test code = Bili Total) 1.8 0.2-1.[address] [facility]2020-11-07 14:51:00 Test Item Value Reference Range Interpretation Comments Bili Indirect (test 1.4 See_Comment [Automa zoey message] The code = Bili Indirect) system which generated this result tra nsmitted reference range : <=1.0. The reference r olinda was not used to int erpret this result as normal/abnormal . [facility]2020-11-07 14:51:00 Test Item Value Reference Range Interpretation Comments Globulin (test code = Globulin) 4.2 2.7-4.[address] [facility]2020-11-07 14:51:00 Test Item Value Reference Range Interpretation Comments A/G Ratio (test code = A/G Ratio) 1.2 1 0.7-1.6 [place] 88195020-11-07 14:51:00 Test Item Value Reference Range Interpretation Comments S Preg (test code = S Negative *NA*(06/17/20 Preg) 8:51 AM) [facility] RockCreswyiESTSNJEVRL1347-07-67 14:51:00 Test Item Value Reference Range Interpretation Comments WBC (test code = WBC) 21.9 3.7-10.4 [facility] RockDgqqmlsIQSZOLHFXT2806-06-85 14:51:00 Test Item Value Reference Range Interpretation Comments RBC (test code = RBC) 5.27 4.20-5.40 [facility] RockFhtzbcpSHAFBTSWWG5652-35-20 14:51:00 Test Item Value Reference Range Interpretation Comments Hgb (test code = Hgb) 12.7 12.0-16.0 [place] [address]-11-07 14:51:00 Test Item Value Reference Range Interpretation Comments Hct (test code = Hct) 40.3 36.0-48.0 [place] [address]-11-07 14:51:00 Test Item Value Reference Range Interpretation Comments MCV (test code = MCV) 76.6 80.0-98.0 [place] [address]-11-07 14:51:00 Test Item Value Reference Range Interpretation Comments MCH (test code = MCH) 24.1 pg 27.0-31.0 [place] [address]-11-07 14:51:00 Test Item Value Reference Range Interpretation Comments MCHC (test code = MCHC) 31.5 32.0-36.0 [place] 393390-11-07 14:51:00 Test Item Value Reference Range Interpretation Comments RDW (test code = RDW) 15.1 11.5-14.5 [place] [address]-11-07 14:51:00 Test Item Value Reference Range Interpretation Comments Platelet (test code = Platelet) 480 133-450 [facility] RockEqqxiyxCNVDLSNSVQ9734-77-96 14:51:00 Test Item Value Reference Range Interpretation Comments MPV (test code = MPV) 8.5 7.4-10.4 [place] [address]-11-07 14:51:00 Test Item Value Reference Range Interpretation Comments Neutrophils # (test code = Neutrophils 19.7 1.5-8.1 #) [place] [address]-11-07 14:51:00 Test Item Value Reference Range Interpretation Comments Lymphocytes # (test code = Lymphocytes 1.5 1.0-5.5 #) [place] 393390-11-07 14:51:00 Test Item Value Reference Range Interpretation Comments Monocytes # (test code 0.4 See_Comment [Aut omated message] The = Monocytes #) system which generated this result tra nsmitted reference range : <=0.8. The reference r olinda was not used to int erpret this result as normal/abnormal . [place] [address]-11-07 14:51:00 Test Item Value Reference Range Interpretation Comments Eosinophils # (test code 0.2 See_Comment [A utomated message] The = Eosinophils #) system whic h generated this result tra nsmitted reference range : <=0.5. The reference r olinda was not used to int erpret this result as normal/abnormal . [facility] RockRejyvflBOGFCXZIXC8756-02-27 14:51:00 Test Item Value Reference Range Interpretation Comments Segs (test code = Segs) 88.0 45.0-75.0 [facility] RockPrrxmwlIIPIMIELDK5577-82-06 14:51:00 Test Item Value Reference Range Interpretation Comments Bands (test code = 2.0 See_Comment [Automat ed message] The Bands) system which ge nerated this result transmit zoey reference range : <=11.0. The reference r olinda was not used to interpr et this result as mary l/abnormal. [facility] RockOstuanhKKHOEIKDBV5291-70-64 14:51:00 Test Item Value Reference Range Interpretation Comments Lymphocytes (test code = Lymphocytes) 2.0 20.0-40.0 [facility] RockEiimzqwJTLYSMEJJC4471-49-11 14:51:00 Test Item Value Reference Range Interpretation Comments Monocytes (test code = Monocytes) 2.0 2.0-12.0 [facility] RockLciybsbUNZVORRAKW6541-86-11 14:51:00 Test Item Value Reference Range Interpretation Comments Eosinophils (test code = 1.0 See_Comment [A utomated message] The Eosinophils) system which ge nerated this result tra nsmitted reference range : <=4.0. The reference r olinda was not used to int erpret this result as normal/abnormal . [facility] RockFxmzlfjQBNZHJYTVG4030-26-08 14:51:00 Test Item Value Reference Range Interpretation Comments Atypical Lymphs (test code = Atypical 5.0 Lymphs) [facility] RockKhbzvphDEGPTOPLDI0142-87-13 14:51:00 Test Item Value Reference Range Interpretation Comments Plt Morph (test code = Normal (06/17/20 8:51 Plt Morph) AM) [facility] RockYdpadipMXFFKYNVTU6351-73-69 14:51:00 Test Item Value Reference Range Interpretation Comments Elliptocyte (test code = Slight *ABN*(06/17/20 Elliptocyte) 8:51 AM) [facility] [id number] 20:56:00 Test Item Value Reference Range Interpretation Comments UA Urobilinogen (test code = UA <=1.0 mg/dL 0.1-1.0 Urobilinogen) [facility] [id number] 20:56:00 Test Item Value Reference Range Interpretation Comments UA Glucose (test code = UA Glucose) 50 [facility] [id number] 20:56:00 Test Item Value Reference Range Interpretation Comments UA RBC (test code = 1 See_Comment [Automa zoey message] The UA RBC) system which ge nerated this result transmit zoey reference range : <=2. The reference range was not used to interpr et this result as mary l/abnormal. [facility] [id number] 20:56:00 Test Item Value Reference Range Interpretation Comments UA Mucus (test code = UA Mucus) Few /LPF [facility] [id number] 20:56:00 Test Item Value Reference Range Interpretation Comments UA WBC (test code = 1 See_Comment [Automa zoey message] The UA WBC) system which ge nerated this result transmit zoey reference range : <=5. The reference range was not used to interpr et this result as mary l/abnormal. [facility] [id number] 20:56:00 Test Item Value Reference Range Interpretation Comments UA Blood (test code = Negative (02/19/19 3:56 UA Blood) PM) [facility] [id number] 20:56:00 Test Item Value Reference Range Interpretation Comments UA Nitrite (test code Negative (02/19/19 3:56 = UA Nitrite) PM) [facility] [id number] 20:56:00 Test Item Value Reference Range Interpretation Comments UA Leuk Est (test Negative (02/19/19 3:56 code = UA Leuk Est) PM) [facility] [id number] 20:56:00 Test Item Value Reference Range Interpretation Comments UA Sq Epi (test code = UA Sq Moderate /LPF Epi) [facility] [id number] 20:56:00 Test Item Value Reference Range Interpretation Comments UA Bili (test code = Negative *NA*(02/19/19 UA Bili) 3:56 PM) [facility] [id number] 20:56:00 Test Item Value Reference Range Interpretation Comments UA Protein (test code = UA Negative mg/dL Protein) [facility] [id number] 20:56:00 Test Item Value Reference Range Interpretation Comments UA Color (test code = Light Yellow UA Color) *NA*(02/19/19 3:56 PM) [facility] [id number] 20:56:00 Test Item Value Reference Range Interpretation Comments UA Ketones (test code = UA Ketones) 80 mg/dL [facility] [id number] 20:56:00 Test Item Value Reference Range Interpretation Comments UA pH (test code = UA pH) 6.0 1 5.0-8.0 [facility] [id number] 20:56:00 Test Item Value Reference Range Interpretation Comments UA Spec Grav (test code = UA Spec 1.041 1 Grav) [facility] [id number] 20:56:00 Test Item Value Reference Range Interpretation Comments UA Turbidity (test code = Clear (02/19/19 3:56 UA Turbidity) PM) [facility]2019-07-12 17:21:00 Test Item Value Reference Range Interpretation Comments Lipase Lvl (test code = Lipase Lvl) 56 73-[address] [facility]2019-07-12 17:21:00 Test Item Value Reference Range Interpretation Comments eGFR (test code = eGFR) [address] [facility]2019-07-12 17:21:00 Test Item Value Reference Range Interpretation Comments Total Protein (test code = Total 7.7 6.4-8.4 Protein) [facility]2019-07-12 17:21:00 Test Item Value Reference Range Interpretation Comments Albumin Lvl (test code = Albumin Lvl) 4.0 3.5-5.[address] [facility]2019-07-12 17:21:00 Test Item Value Reference Range Interpretation Comments ALT (test code = ALT) 34 See_Comment [Auto mated message] The system which ge nerated this result transmit zoey reference range : <=65. The reference range was not used to interpr et this result as mary l/abnormal. [facility]2019-07-12 17:21:00 Test Item Value Reference Range Interpretation Comments Bili Total (test code = Bili Total) 1.4 0.2-1.[address] [facility]2019-07-12 17:21:00 Test Item Value Reference Range Interpretation Comments Alk Phos (test code = Alk Phos) 47 39-[address] [facility]2019-07-12 17:21:00 Test Item Value Reference Range Interpretation Comments AST (test code = AST) 22 See_Comment [Auto mated message] The system which ge nerated this result transmit zoey reference range : <=37. The reference range was not used to interpr et this result as mary l/abnormal. [facility]2019-07-12 17:21:00 Test Item Value Reference Range Interpretation Comments Glucose Lvl (test code = Glucose Lvl) 140 70-[address] [facility]2019-07-12 17:21:00 Test Item Value Reference Range Interpretation Comments Creatinine Lvl (test code = Creatinine 0.90 0.50-1.40 Lvl) [facility]2019-07-12 17:21:00 Test Item Value Reference Range Interpretation Comments Potassium Lvl (test code = Potassium 4.1 3.5-5.1 Lvl) [facility]2019-07-12 17:21:00 Test Item Value Reference Range Interpretation Comments BUN (test code = BUN) 9 7-[address] [facility]2019-07-12 17:21:00 Test Item Value Reference Range Interpretation Comments Sodium Lvl (test code = Sodium Lvl) 143 135-[address] [facility]2019-07-12 17:21:00 Test Item Value Reference Range Interpretation Comments Calcium Lvl (test code = Calcium Lvl) 9.3 8.5-10.[address] [facility]2019-07-12 17:21:00 Test Item Value Reference Range Interpretation Comments Chloride Lvl (test code = Chloride Lvl) 110 95-[address] [facility]2019-07-12 17:21:00 Test Item Value Reference Range Interpretation Comments CO2 (test code = CO2) 21 24-[address] [facility]2019-07-12 17:21:00 Test Item Value Reference Range Interpretation Comments A/G Ratio (test code = A/G Ratio) 1.1 1 0.7-1.[address] [facility]2019-07-12 17:21:00 Test Item Value Reference Range Interpretation Comments AGAP (test code = AGAP) 16.1 10.0-20.[address] [facility]2019-07-12 17:21:00 Test Item Value Reference Range Interpretation Comments Globulin (test code = Globulin) 3.7 2.7-4.[address] [facility]2019-07-12 17:21:00 Test Item Value Reference Range Interpretation Comments B/C Ratio (test code = B/C Ratio) 10 1 6-25 [place] 88195019-07-12 17:21:00 Test Item Value Reference Range Interpretation Comments S Preg (test code = S Negative *NA*(02/19/19 Preg) 12:21 PM) [facility] RockAlynemnBGAGMMMMHS2644-68-00 17:21:00 Test Item Value Reference Range Interpretation Comments Monocytes (test code = Monocytes) 2.3 2.0-12.0 [facility] RockLtwkedrWWYKDQZXSH8093-35-16 17:21:00 Test Item Value Reference Range Interpretation Comments Neutrophils # (test code = Neutrophils 17.3 1.5-8.1 #) [facility] RockShcjqciDJHKGFJFNV3627-05-88 17:21:00 Test Item Value Reference Range Interpretation Comments Basophils (test code = 0.3 See_Comment [Aut omated message] The Basophils) system which ge nerated this result tra nsmitted reference range : <=1.0. The reference r olinda was not used to int erpret this result as normal/abnormal . [facility] RockRrktfdkUPDDYYOIVD1187-19-47 17:21:00 Test Item Value Reference Range Interpretation Comments Eosinophils (test code = 0.1 See_Comment [A utomated message] The Eosinophils) system which ge nerated this result tra nsmitted reference range : <=4.0. The reference r olinda was not used to int erpret this result as normal/abnormal . [facility] RockEakcpdqEMZEJNJBDZ4940-69-05 17:21:00 Test Item Value Reference Range Interpretation Comments Basophils # (test code 0.1 See_Comment [Aut omated message] The = Basophils #) system which generated this result tra nsmitted reference range : <=0.2. The reference r olinda was not used to int erpret this result as normal/abnormal . [facility] RockLbdwaiwFJQKNHHGYQ8791-76-24 17:21:00 Test Item Value Reference Range Interpretation Comments Eosinophils # (test code 0.0 See_Comment [A utomated message] The = Eosinophils #) system whic h generated this result tra nsmitted reference range : <=0.5. The reference r olinda was not used to int erpret this result as normal/abnormal . [facility] RockReiesczSEMYLLVVET5684-72-55 17:21:00 Test Item Value Reference Range Interpretation Comments Lymphocytes # (test code = Lymphocytes 1.3 1.0-5.5 #) [facility] RockZpxaxtpOZVGDKIABW4140-12-65 17:21:00 Test Item Value Reference Range Interpretation Comments Toxic Gran (test code Moderate *ABN*(02/19/19 = Toxic Gran) 12:21 PM) [facility] RockAjkfdihPMYTQXNMNT0021-50-77 17:21:00 Test Item Value Reference Range Interpretation Comments Segs (test code = Segs) 90.4 45.0-75.0 [facility] RockIeemzdlWPLGYRPCEZ7029-57-33 17:21:00 Test Item Value Reference Range Interpretation Comments Lymphocytes (test code = Lymphocytes) 6.9 20.0-40.0 [facility] RockSudoxajEPZCMQQLAH5202-04-06 17:21:00 Test Item Value Reference Range Interpretation Comments Monocytes # (test code 0.4 See_Comment [Aut omated message] The = Monocytes #) system which generated this result tra nsmitted reference range : <=0.8. The reference r olinda was not used to int erpret this result as normal/abnormal . [facility] RockPpmvlwiAQIYBTUDPJ8936-41-25 17:21:00 Test Item Value Reference Range Interpretation Comments RBC Morph (test code = Normal (02/19/19 12:21 RBC Morph) PM) [facility] RockFyfegroCKITPBQYVS7129-75-03 17:21:00 Test Item Value Reference Range Interpretation Comments Plt Morph (test code = Clumped 1(02/19/19 12:21 Plt Morph) PM) [facility] RockWclaleuNEZURZKVHK1818-92-49 17:21:00 Test Item Value Reference Range Interpretation Comments MCHC (test code = MCHC) 32.5 32.0-36.0 [facility] RockDrtuepiVMWTSCSBWK0624-02-05 17:21:00 Test Item Value Reference Range Interpretation Comments RDW (test code = RDW) 14.8 11.5-14.5 [facility] RockGsyyataXPDIVAPKWB0263-37-84 17:21:00 Test Item Value Reference Range Interpretation Comments Platelet (test code = Platelet) 391 133-450 [facility] RockVdweqpdTQEQLCYSTX3365-93-48 17:21:00 Test Item Value Reference Range Interpretation Comments MPV (test code = MPV) 8.4 7.4-10.4 [facility] RockKczgmmsEWFQWAQXOU4227-33-53 17:21:00 Test Item Value Reference Range Interpretation Comments MCH (test code = MCH) 26.4 pg 27.0-31.0 [facility] RockYirhyzsZQGPGQOYHJ8201-17-92 17:21:00 Test Item Value Reference Range Interpretation Comments MCV (test code = MCV) 81.4 80.0-98.0 [facility] RockVsnugkgDIVNYIXIFB1967-78-69 17:21:00 Test Item Value Reference Range Interpretation Comments Hgb (test code = Hgb) 13.4 12.0-16.0 [facility] RockTermcizKZXORHDDKS5589-78-53 17:21:00 Test Item Value Reference Range Interpretation Comments RBC (test code = RBC) 5.09 4.20-5.40 [facility] RockCmabnhsJEEZPBYWGH6892-38-27 17:21:00 Test Item Value Reference Range Interpretation Comments WBC (test code = WBC) 19.1 3.7-10.4 [facility] RockYpyffljFTLIPROMPO9078-03-76 17:21:00 Test Item Value Reference Range Interpretation Comments Hct (test code = Hct) 41.4 36.0-48.0 [facility]
[2022-07-08 14:57] LABS: Urine Blood 3+ (Negative); Urine Glucose Negative (Negative); Urine Protein 2+ (Negative); Urine Specific Gravity >=1.030 (1.005-1.030); Urine pH 6.5 (5.0-7.0)
[2022-07-08 15:03] LABS: Absolute Lymphocytes (CBC) 2.2 K/uL (0.7-4.9); Hematocrit 37.2 % (36.0-45.0); Lymphocytes % 17.1 % (15.3-44.8); MCV 86.2 fL (80-100); MPV 7.7 fL (7.6-11.3); RBC Red Blood Cell Count 4.32 M/uL (3.86-4.86)
[2022-07-08 15:10] LABS: Urine Specific Gravity/Preg >1.030 (1.005-1.030)
[2022-07-08 15:25] LABS: Potassium 3.5 mmol/L (3.5-5.1)
--- NOTE | 2022-07-08 15:46 | RAD REPORT ---
EXAM DESCRIPTION: US - Transvaginal OB - 07/08/2022 3:15 pm CLINICAL HISTORY: Abd cramping, COMPARISON: none FINDINGS: The uterus measures 11.3 x 5.5 x 6.3 cm with volume of 207 cc. Endometrial echo complex me asures 8 millimeters. [place] cystic collection in the region of the cervix noted. This has a mean yasmani meter of 1.3 cm. No yolk sac or pole identified. No heart tones. 13 mm area of calcificat ion in the uterine fundus likely a degenerated fibroid. Neither ovary visualized. . IMPRESSION: Cystic structure at at the cervix may reflect a gestational sac and possible impending f andres first trimester . Suggest correlating with beta HCG and could consider short-term foll ow-up. Neither ovary visualized.
--- NOTE | 2022-07-08 17:24 | ER ---
Nurse's Notes [facility] Name: Bryanna Arriaza Age: 36 yrs Sex: Female : 1985 Arrival Date: 07/08/2022 Time: 13:30 Bed IW1 Private MD: Diagnosis: Threatened Presentation: 07/08 14:44 Chief complaint: Patient states: vaginal bleeding with clots that began on 07/02. ss Coronavirus screen: Client denies travel out of the [place] in the last 14 days. Ebola Screen: Patient denies exposure to infectious person. Patient denies travel to an Ebola-affected area in the 21 days before illness onset. Initial Sepsis Screen: Does the patient meet any 2 criteria? No. Patient's initial sepsis screen is negative. Does the patient have a suspected source of infection? No. Patient's initial sepsis screen is negative. Risk Assessment: Do you want to hurt yourself or someone else? Patient reports no desire to harm self or others. Onset of symptoms was July 02, 2022. 14:44 Method Of Arrival: Wheelchair ss 14:44 Acuity: RHYS 3 ss [employer]: 19:42 3, 1, Living 1, LMP 05/21/2022 kb Historical: - Allergies: 14:45 No Known Allergies; ss - Home Meds: 14:45 None [Active]; ss - PMHx: 14:45 None; ss - PSHx: 14:45 section; ss Screenin:44 Abuse screen: Denies threats or abuse. Denies injuries from another. Nutritional ss screening: No deficits noted. Tuberculosis screening: Never had TB. Fall Risk None identified. Assessment: 14:44 General: Appears in no apparent distress. comfortable, Behavior is calm, cooperative. ss Neuro: Level of Consciousness is awake, alert, obeys commands. Cardiovascular: Capillary refill < 3 seconds is brisk in bilateral fingers. Respiratory: Airway is patent Respiratory effort is even, unlabored, Respiratory pattern is regular, symmetrical. GI: Patient currently denies diarrhea, vomiting. : Reports vaginal bleeding that is since 07/02. :. Derm: Skin is pink, warm \T\ dry. normal. Musculoskeletal: Range of motion: intact in all extremities. Vital Signs: 14:44 BP 148 / 82; Pulse 76; Resp 18; Temp 98.2(TE); Pulse Ox 100% on R/A; Weight 68.95 kg; ss Height 5 ft. 5 in. (165.10 cm); 14:44 Body Mass Index 25.29 (68.95 kg, 165.10 cm) ED Course: 13:30 Patient arrived in ED. rg4 13:36 Dolly Harrell FNP-C is [facility]. kb 13:36 Sajan Jay DO is Attending Physician. kb 14:16 Radiology exam delayed due to unable to find patient- checked in er waiting x 3 times, hr checked with azucena cloud in triage and ladies at er registration---hr. 14:44 Patient has correct armband on for positive identification. ss 14:45 Triage completed. ss 14:45 Arm band placed on left wrist. ss 14:51 Initial lab(s) drawn, by me, sent to lab. Inserted saline lock: 24 gauge in left wrist, iw using aseptic technique. Blood collected. 15:16 US Transvaginal Ob In Process Unspecified. EDMS 17:46 Azucena Weinberg, RN is Primary Nurse. ss 17:46 No provider procedures requiring assistance completed. IV discontinued, intact, ss bleeding controlled, No redness/swelling at site. Pressure dressing applied. Administered Medications: No medications were administered Medication: 14:44 VIS not applicable for this client. ss Outcome: 17:23 Discharge ordered by . kb 17:46 Discharged to home ambulatory. ss 17:46 Condition: good 17:46 Discharge instructions given to patient, Instructed on discharge instructions, follow up and referral plans. Demonstrated understanding of instructions, follow-up care. 17:47 Patient left the ED. ss Signatures: Dispatcher [employer] EDMS Dolly Harrell FNP-C FNP-Mehreen Jalloh Irene, RN RN Azucena Weinberg RN RN ss Garcia, Rubi rg4
--- NOTE | 2022-07-08 17:24 | EDPHYS ---
Physician Documentation [facility] Name: Bryanna Arriaza Age: 36 yrs Sex: Female : 1985 Arrival Date: 07/08/2022 Time: 13:30 Bed IW1 Private MD: ED Physician Sajan Jay HPI: 07/08 19:39 This 36 yrs old Female presents to ER via Wheelchair with complaints of Vaginal kb Bleeding. 19:39 The patient has not recently seen a physician. kb 19:39 The patient presents to the emergency department with vaginal bleeding, that is kb moderate, with clots. The patient has not experienced similar symptoms in the past. 19:42 course: care: at a clinic, Leakage of Fluid: none appreciated, kb Ultrasound: the patient has not had an ultrasound, Risk/complications: no obvious risks or complications are appreciated. Previous pregnancies: in previous pregnancies patient has had. Associated signs and symptoms: Pertinent positives: vaginal bleeding. Pt reports she found out she was 2 weeks ago, started having vaginal bleeding with clots on 07/02. Came in to see if she was miscarrying. . [employer]: 19:42 3, 1, Living 1, LMP 05/21/2022 kb Historical: - Allergies: 14:45 No Known Allergies; ss - Home Meds: 14:45 None [Active]; ss - PMHx: 14:45 None; ss - PSHx: 14:45 section; ss ROS: 19:39 Constitutional: Negative for fever, chills, and weight loss. kb 19:39 : Positive for vaginal bleeding. 19:39 All other systems are negative. Exam: 19:39 Constitutional: This is a well developed, well nourished patient who is awake, alert, kb and in no acute distress. Head/Face: Normocephalic, atraumatic. ENT: Moist Mucous membranes Cardiovascular: Regular rate and rhythm with a normal S1 and S2. No gallops, murmurs, or rubs. No pulse deficits. Respiratory: Respirations even and unlabored. No increased work of breathing. Talking in full sentences Abdomen/GI: Soft, non-tender. No distention Skin: Warm, dry with normal turgor. Normal color. MS/ Extremity: Pulses equal, no cyanosis. Neurovascular intact. Full, normal range of motion. Neuro: Awake and alert, GCS 15, oriented to person, place, time, and situation. Moves all extremities. Normal gait. Psych: Awake, alert, with orientation to person, place and time. Behavior, mood, and affect are within normal limits. Vital Signs: 14:44 BP 148 / 82; Pulse 76; Resp 18; Temp 98.2(TE); Pulse Ox 100% on R/A; Weight 68.95 kg; ss Height 5 ft. 5 in. (165.10 cm); 14:44 Body Mass Index 25.29 (68.95 kg, 165.10 cm) ss MDM: 14:05 Patient medically screened. kb 19:38 Data reviewed: vital signs, nurses notes. Data interpreted: Pulse oximetry: on room air kb is 100 %. Interpretation: normal. Counseling: I had a detailed discussion with the patient and/or guardian regarding: the historical points, exam findings, and any diagnostic results supporting the discharge/admit diagnosis, lab results, radiology results, the need for outpatient follow up, an OB/Gyne specialist, to return to the emergency department if symptoms worsen or persist or if there are any questions or concerns that arise at home. ED course: Pt has appt with OB on July 11, 2022 for follow up. 07/08 14:05 Order name: Abo/rh Typing; Complete Time: 15:56 kb 07/08 14:05 Order name: Basic Metabolic Panel; Complete Time: 15:56 kb 07/08 14:05 Order name: CBC with Diff; Complete Time: 15:07 kb 07/08 14:05 Order name: Quantitative Hcg; Complete Time: 15:56 kb 07/08 14:57 Order name: Urine Dipstick-Ancillary; Complete Time: 15:07 EDMS 07/08 14:59 Order name: Urine --Ancillary (enter results); Complete Time: 15:10 iw 07/08 14:05 Order name: US Transvaginal Ob; Complete Time: 15:56 kb 07/08 14:05 Order name: IV Saline Lock; Complete Time: 14:52 kb 07/08 14:05 Order name: Labs collected and sent; Complete Time: 14:52 kb 07/08 14:05 Order name: NPO; Complete Time: 14:52 kb 07/08 14:05 Order name: Urine Dipstick-Ancillary (obtain specimen); Complete Time: 14:52 kb 07/08 14:05 Order name: Urine Test (obtain specimen); Complete Time: 14:52 kb Administered Medications: No medications were administered Disposition: 19:55 Co-signature as Attending Physician, Sajan Jay DO I was immediately available on-site ms3 in the Emergency Department for consultation in the care of the patient.. Disposition Summary: 07/08/22 17:23 Discharge Ordered Location: Home kb Condition: Stable kb Diagnosis - Threatened kb Followup: kb - With: Emergency Department - When: As needed - Reason: Worsening of condition Followup: kb - With: Private Physician - When: 2 - 3 days - Reason: Recheck today's complaints, Continuance of care, Re-evaluation by your physician Discharge Instructions: - Discharge Summary Sheet kb - Threatened Miscarriage, [id number] kb - Vaginal Bleeding During , First Trimester, [id number] kb Forms: - Medication Reconciliation Form kb - Thank You Letter kb - Antibiotic Education kb - Prescription Opioid Use kb Signatures: Dispatcher [employer] Dolly Gaston, [employer]-C [employer]-Sheila Nieto, RN RN Sajan Gonsales DO DO ms3
[2022-07-08 17:51] VITALS: BP 148/82; TEMP 98.2; O2SAT 100
== END 2022-07-08 17:47 | disposition home or self-care (01) ==
LOC: ER 13:27
DX: O20.0 Threatened abortion (principal)
CPT/HCPCS: 36415; 76817; 80048; 81003; 81025; 84702; 85025; 86900; 86901; 99283